=== PATIENT | female | born 1945 | race Caucasian/White ===

== ENCOUNTER 2017-02-13 03:56 | Observation (INO) ==
[2017-02-13] MEDS ORDERED: Ondansetron 4 MG/2 ML VIAL IVP ONE (04:17)
--- NOTE | 2017-02-13 04:24 | Emergency Department Note ---
Disposition Clinical Impression: Left facial numbness Disposition: Admitted As Inpatient Condition: Fair Time of Disposition: 05:43 General Adult HPI - General Chief complaint: ED Neuro Symptoms/Deficit Stated complaint: facial numbness Time Seen by Provider: 02/13/17 04:20 Source: patient, family Limitations: no limitations Nursing Notes Reviewed: Yes Vital Signs Reviewed: Yes - History of Present Illness HPI Narrative: 71-year-old female history of diabetes insulin-dependent, hypertension, previous Rolle's palsy, presents with acute/gradual onset of symptoms. Patient has been feeling not well for about a week, she complains of lower extremity abdominal swelling. This evening when she was walking around, she started noticing that she is having facial numbness some jaw aching and some tendon radiation down her arm. She denies any chest pain, she feels somewhat dizzy and has a mild headache that she describes as 4 out of 10 aching. patient denies recent fever or chills, denies hematemesis melena or hematochezia Pt Subjective Complaint: Facial numbness Onset (ago): hour(s) (3) Location: face Radiation: neck Pain Scale: 3 Quality: aching Consistency: constant Improves with: nothing Worsens with: movement Associated symptoms: Reports: headaches. Denies: confusion, chest pain, cough, diaphoresis, loss of appetite, malaise, nausea/vomiting, rash, shortness of breath, syncope - Related Data Home Medications Medication Instructions Recorded Confirmed Insulin Glargine [Lantus] 0 - 20 unit SQ DAILY PRN 07/27/15 10/17/16 Potassium Chloride [K-Tab ER] 10 meq PO DAILY 07/27/15 10/17/16 Vitamin E 1,000 units PO DAILY 07/27/15 10/17/16 amLODIPine [Norvasc] 5 mg PO DAILY 07/27/15 10/17/16 glipiZIDE [Glipizide] 10 mg PO BID 07/27/15 10/17/16 ALPRAZolam [Xanax 0.5 MG Tablet] 0.5 mg PO DAILY PRN 10/17/16 10/17/16 Fish Oil/Dha/Epa [Fish Oil 1,200 1,200 mg PO DAILY 10/17/16 10/17/16 mg Fish Oil] Omeprazole Magnesium [Prilosec Otc] 20 mg PO DAILY 10/17/16 10/17/16 Pioglitazone [Actos] 45 mg PO DAILY 10/17/16 10/17/16 Pramipexole [Mirapex] 1 mg PO HS 10/17/16 10/17/16 Triamterene/Hydrochlorothiazid 1 cap PO DAILY 10/17/16 10/17/16 [Dyazide 37.5-25 Capsule] Previous Rx's Medication Instructions Recorded HYDROcodone/Acet 5/325 mg [[place] 1 tab PO Q6H PRN #10 tab 06/09/16 5-325 mg] Azithromycin [Zithromax] 500 mg PO ONCE #5 tablet 10/18/16 Docusate [Colace] 100 mg PO BID 10/18/16 Ibuprofen [Motrin] 600 mg PO Q6HR PRN tab 10/18/16 cephALEXin [Keflex] 500 mg PO TID #21 capsule 10/18/16 Rivaroxaban [Xarelto] 15 mg PO BID #42 tablet 10/27/16 Allergies Allergy/AdvReac Type Severity Reaction Status Date / Time amitriptyline Allergy Diarrhea Verified 10/27/16 11:40 Amoxicillin [From Amoxil] Allergy Rash Verified 10/27/16 11:40 cephalexin Allergy Confusion Verified 10/27/16 11:40 gabapentin Allergy Hallucinati Verified 10/27/16 11:40 ng Influenza Virus Vaccines Allergy Vomiting Verified 10/27/16 11:40 liraglutide [From Victoza] Allergy Nausea Verified 10/27/16 11:40 metformin Allergy Diarrhea Verified 10/27/16 11:40 Penicillins Allergy Confusion Verified 10/27/16 11:40 pregabalin [From Lyrica] Allergy Swelling Verified 10/27/16 11:40 of Lip/Tongue/Throat sitagliptin Allergy Muscle Pain Verified 10/27/16 11:40 All systems ED: reviewed and negative except as stated. Review of Systems: As Per HPI Constitutional: Denies: fever, chills Eyes: Denies: eye pain ENT ED: Denies: ear pain, throat pain Cardiovascular: Denies: chest pain, palpitations Respiratory: Denies: cough, dyspnea Gastrointestinal: Denies: abdominal pain, nausea Genitourinary: Denies: urgency Integumentary: Denies: rash, abrasion Neurological: Reports: as per HPI, headache, numbness Endocrine: Reports: fatigue Past Medical History - Past Medical History Attestation: Yes The following information was validated with the patient. Source: patient Medical history: Reports: diabetes, GERD, hypertension Psychiatric history: Reports: anxiety - Social History Smoking Status: Never smoker Smokeless Tobacco Status: No Alcohol use: Reports: none Drug use: Reports: none Physical Exam - General Limitations: no limitations General appearance: alert, in no apparent distress - Head Head exam: atraumatic - Eye Eye exam: Present: normal appearance, PERRL - ENT ENT exam: normal exam, normal oropharynx - Neck Neck exam: Present: normal inspection, full ROM - Chest Chest inspection: Present: normal inspection. Absent: symmetric chest wall rise - Respiratory Respiratory exam: Present: normal lung sounds bilaterally. Absent: respiratory distress - Cardiovascular Cardiovascular exam: Present: normal rhythm, tachycardia, normal heart sounds - Expanded Cardiovascular Exam Peripheral pulses: 2+: radial (R), radial (L), posterior tibialis (R), posterior tibialis (L) - Abdominal Exam Abdominal exam: Present: soft. Absent: Non-Tender, tenderness - Extremities Exam Extremities exam: Present: normal inspection, full ROM - Expanded Lower Extremity Exam Ankle exam: Present: swelling (+2 pitting edema) - Expanded Neurological Exam Patient oriented to: Present: person, place, time Cranial nerves: EOM function (II, III, IV, ): Normal, facial sensation (V): Abnormal Left, facial palsy (VII): Normal, gag reflex (IX): Normal, spinal accessory function (XI): Normal, tongue deviation (XII): Normal Motor strength - LUE: 5/5 Motor strength - RUE: 5/5 Motor strength - LLE: 5/5 Motor strength - RLE: 5/5 Coma Scale Eye Opening: Spontaneous Coma Scale Motor Response: Obeys Commands Coma Scale Verbal Response: Oriented Coma Scale Total: 15 - Psychiatric Psychiatric exam: Present: normal affect - Skin Skin exam: Present: warm Course Course Narrative: 71-year-old female has multiple complaints on exam she has some mild nasal labial asymmetry, she has forehead sparing symmetric forehead creases, when she smiles there may be slight asymmetry but it is hard to tell, her NIH is 1, she has no subjective difference in sensation but she says that she has numbness and aching on her left face on her left cheek. She also has aching in her jaw, and a headache, these symptoms are nonspecific and minor if CVA, we will get a stat CT head also getting chest x-ray EKG basic lab work - Reevaluation(s) Reevaluation #1: Patient has stable symptoms, given the low NIH, possible TIA left facial numbness multiple comorbidities, her d-dimer was only 500s, given that she has age-adjusted cutoff of 720 no indication for advanced imaging at this time, the patient will be given an aspirin given a cardiac diet at spoke with the hospitalist Dr. Costa admitted for further workup including MRI possible echo given that she has lower externally swelling patient stable condition at the time of ED disposition Time: 06:28 Vital Signs Temperature 97.9 F 02/13/17 03:58 Pulse Rate 99 02/13/17 03:58 Respiratory Rate 18 02/13/17 03:58 Blood Pressure 207/80 02/13/17 03:58 O2 Sat by Pulse Oximetry 98 02/13/17 03:58 Temperature 97.9 F 02/13/17 03:58 Pulse Rate 84 02/13/17 05:09 Respiratory Rate 18 02/13/17 05:09 Blood Pressure 140/68 02/13/17 05:09 O2 Sat by Pulse Oximetry 96 02/13/17 05:09 Oxygen Delivery Oxygen Delivery Room Air Medical Decision Making - Medical Records Medical records reviewed: Yes I reviewed the patient's medical records. - Lab Data Lab results reviewed: Yes I reviewed the patient's lab results. Result diagrams: 02/13/17 04:22 02/13/17 04:22 Lab Results 02/13/17 02/13/17 02/13/17 Range/Units 04:22 04:22 04:22 WBC 6.1 (4.3-11.1) K/mcL RBC 4.63 (3.82-4.97) M/mcL Hgb 14.4 (11.5-15.4) g/dL Hct 43.6 (35.3-44.9) % MCV 94.2 (83.0-100.0) fL MCH 31.1 (28.0-33.3) pg MCHC 33.0 (31.6-35.5) g/dL RDW 12.8 (11.5-14.5) % Plt Count 140 (140-400) K/mcL MPV 9.8 (9.4-12.4) fL Immature Gran % 0.5 (0-4) % Seg Neutrophils % 54.8 % Lymphocytes % 33.1 % Monocytes % 9.6 % Eosinophils % 1.5 % Basophils % 0.5 % Neutrophils # 3.4 (1.6-8.9) K/mcL Lymphocytes # 2.0 (0.6-4.6) K/mcL Monocytes # 0.6 (0.0-1.3) K/mcL Eosinophils # 0.1 (0.0-0.6) K/mcL Basophils # 0.0 (0.0-0.2) K/mcL PT 10.6 (9.4-12.1) Seconds INR 1.0 APTT 26.5 (26.0-36.0) Seconds D-Dimer 534 H (0-500) ng/mLFEU Sodium 139 (136-145) mEq/L Potassium 3.7 (3.5-5.1) mEq/L Chloride 102 (98-107) mEq/L Carbon Dioxide 28 (23-29) mEq/L BUN 19 (8-23) mg/dL Creatinine 0.73 (0.60-1.20) mg/dL Est GFR ( Amer) > 60 (> 60) Est GFR (Non-Af Amer) > 60 (> 60) BUN/Creatinine Ratio 26 (6-26) Glucose 270 H (70-105) mg/dL Calculated Osmolality 300 (280-300) Calcium 9.4 (8.6-10.3) mg/dL Troponin I (< 0.04) ng/mL Urine Color (Yellow) Urine Clarity (Clear) Urine pH (5.0-8.0) pH Units Ur Specific [place] (1.010-1.025) Urine Protein (Neg-Trace) mg/dL Urine Glucose (UA) (Normal) mg/dL Urine Ketones (Negative) mg/dL Urine Blood (Negative) Urine Nitrite (Negative) Urine Bilirubin (Negative) Urine Urobilinogen (Normal) mg/dL Ur Leukocyte Esterase (Negative) Ur Culture Indicated? (NO) 02/13/17 02/13/17 Range/Units 04:22 04:39 WBC (4.3-11.1) K/mcL RBC (3.82-4.97) M/mcL Hgb (11.5-15.4) g/dL Hct (35.3-44.9) % MCV (83.0-100.0) fL MCH (28.0-33.3) pg MCHC (31.6-35.5) g/dL RDW (11.5-14.5) % Plt Count (140-400) K/mcL MPV (9.4-12.4) fL Immature Gran % (0-4) % Seg Neutrophils % % Lymphocytes % % Monocytes % % Eosinophils % % Basophils % % Neutrophils # (1.6-8.9) K/mcL Lymphocytes # (0.6-4.6) K/mcL Monocytes # (0.0-1.3) K/mcL Eosinophils # (0.0-0.6) K/mcL Basophils # (0.0-0.2) K/mcL PT (9.4-12.1) Seconds INR APTT (26.0-36.0) Seconds D-Dimer (0-500) ng/mLFEU Sodium (136-145) mEq/L Potassium (3.5-5.1) mEq/L Chloride (98-107) mEq/L Carbon Dioxide (23-29) mEq/L BUN (8-23) mg/dL Creatinine (0.60-1.20) mg/dL Est GFR ( Amer) (> 60) Est GFR (Non-Af Amer) (> 60) BUN/Creatinine Ratio (6-26) Glucose (70-105) mg/dL Calculated Osmolality (280-300) Calcium (8.6-10.3) mg/dL Troponin I < 0.03 (< 0.04) ng/mL Urine Color Yellow (Yellow) Urine Clarity Clear (Clear) Urine pH 6.0 (5.0-8.0) pH Units Ur Specific [place] 1.030 H (1.010-1.025) Urine Protein Negative (Neg-Trace) mg/dL Urine Glucose (UA) >=1000 H (Normal) mg/dL Urine Ketones Negative (Negative) mg/dL Urine Blood Negative (Negative) Urine Nitrite Negative (Negative) Urine Bilirubin Negative (Negative) Urine Urobilinogen Normal (Normal) mg/dL Ur Leukocyte Esterase Negative (Negative) Ur Culture Indicated? NO (NO) - Radiology Data Radiology results reviewed: Yes I reviewed the patient's radiology results. Chest X-Ray 01/02/18 04:17 IMPRESSION: No significant findings in the chest. D/ / Jesus Baker MD / Jesus Baker MD Interpreting Provider: Jesus Baker MD Head CT 02/13/17 04:17 IMPRESSION: No acute intracranial abnormality. D/ / Jesus Baker MD / Jesus Baker MD Interpreting Provider: Jesus Baker MD - EKG Data EKG #1 EKG attestation: Yes I reviewed and interpreted this EKG. EKG shows normal: sinus rhythm (92 bpm AK 203 QRS 84 QTC 394 no acute ischemic changes, poor R wave progression seen on previous EKG in September 2016) Rate: normal Rhythm: NSR Interpretation: no acute changes - Core Measures AMI Core Measures Followed: No Measure Exclusions: not indicated Attestation Statement - Attestation Attestation: I, Adin Flynn MD, personally evaluated this patient and discussed their management with the resident physician. I reviewed the resident's note and agree with the documented findings, medical decision making, and plan of care. 71-year-old female presents to the emergency department with a complaint of numbness in the left side of her face which started about 3 hours prior to arrival. Onset was gradual. She states that the symptoms have pretty much stayed the same and do not seem to be getting worse or better. She has a prior history of Rolle's palsy several years ago. She denies history of stroke. She denies a difficulty with speech or swallowing or balance. No weakness in the extremities. No confusion. She does complain of some headache. She has a history of a DVT which was treated with Eliquis which she discontinued a few weeks ago and is now taking low-dose aspirin daily. Patient also complains that over the past week she has had just generalized not feeling well. She states that she feels bloated and swollen and has gained more than 10 pounds over the last week. She denies any increased shortness of breath. She does state that the numbness is just in the left cheek and jaw area and that also teeth hurt. Also earlier the numbness did seem to go down into the left arm and into the left upper chest and she had some discomfort in the left upper chest. On examination patient is a well-developed obese elderly female in no acute distress. She is alert and oriented 3. There is no cyanosis or diaphoresis. Patient appears to have may be some very minimal right facial droop however her numbness is on the left side. Actually the right side may be normal in the left side may be slightly swollen. No focal motor or sensory deficits on examination. Normal elevation of the eyelids bilaterally and normal squinting of the eyes bilaterally. Neck is supple and nontender with full range of motion. No meningismus. Breath sounds are clear and equal bilaterally. Heart regular rate and rhythm. Abdomen soft and nontender with normal bowel sounds. Labs reviewed. Chest x-ray negative. Head CT negative. No acute ischemic changes on EKG. The hospitalist, Dr. Costa, was consulted and accepted admission of the patient. NIH Stroke Scale - Level of Consciousness LOC: Alert - LOC Questions LOC Questions: Answers both correctly - LOC Commands LOC Commands: Performs both correctly - Best Gaze Best Gaze: Normal - Visual Visual: No visual loss - Facial Palsy Facial Palsy: Minor asymmetry on smiling, flattened nasolabial fold - Motor Arms Motor Arm-Left: No drift for 10 seconds Motor Arm-Right: No drift for 10 seconds - Motor Legs Motor Leg-Left: No drift for 5 seconds Motor Leg-Right: No drift for 5 seconds - Limb Ataxia Limb Ataxia: Absent of affected limb too weak to perform exam - Sensory Sensory: Normal - Best Language Best Language: No aphasia - Dysarthria Dysarthria: Normal - Extinction and Inattention Extinction and Inattention: Normal - NIHSS Total Score NIHSS Total Score: 1
[2017-02-13 04:31] LABS: Basophils % 0.5 %; Eosinophils # 0.1 K/mcL (0.0-0.6); Eosinophils % 1.5 %; Hematocrit 43.6 % (35.3-44.9); Hemoglobin 14.4 g/dL (11.5-15.4); Immature Granulocytes % 0.5 % (0-4); Lymphocytes % 33.1 %; Mean Corpuscular Hemoglobin 31.1 pg (28.0-33.3); Mean Corpuscular Volume 94.2 fL (83.0-100.0); Mean Platelet Volume 9.8 fL (9.4-12.4); Monocytes # 0.6 K/mcL (0.0-1.3); Monocytes % 9.6 %; Neutrophils # 3.4 K/mcL (1.6-8.9); Platelet Count 140 K/mcL (140-400); Red Blood Count 4.63 M/mcL (3.82-4.97); Red Cell Distribution Width 12.8 % (11.5-14.5); Segmented Neutrophils % 54.8 %
[2017-02-13 04:50] LABS: BUN/Creatinine Ratio 26 (6-26); Blood Urea Nitrogen 19 mg/dL (8-23); Calcium 9.4 mg/dL (8.6-10.3); Carbon Dioxide 28 mEq/L (23-29); Chloride 102 mEq/L (98-107); Glucose 270 mg/dL (70-105); Osmolality,Calculated 300 (280-300); Potassium 3.7 mEq/L (3.5-5.1); Sodium 139 mEq/L (136-145); eGFR For African Americans > 60 (> 60); eGFR For Non-African Americans > 60 (> 60)
[2017-02-13 04:52] LABS: Prothrombin Time 10.6 Seconds (9.4-12.1)
[2017-02-13 04:55] LABS: Activated Partial Thrombo Time 26.5 Seconds (26.0-36.0)
[2017-02-13 05:06] LABS: Bilirubin,Urine Negative (Negative); Blood,Urine Negative (Negative); Clarity,Urine Clear (Clear); Color,Urine Yellow (Yellow); Glucose,Urine (UA) >=1000 mg/dL (Normal); Ketones,Urine Negative (Negative); Leukocyte Esterase,Urine Negative (Negative); Nitrite,Urine Negative (Negative); Protein,Urine Negative (Neg-Trace); Urobilinogen,Urine Normal (Normal)
[2017-02-13] MEDS ORDERED: Aspirin 81 MG TAB.CHEW PO ONE (06:26)
[2017-02-13] MEDS ORDERED: Aspirin 81 MG TAB.CHEW ONE (06:28)
[2017-02-13] MEDS ORDERED: Naloxone 0.4 MG/ML INJ IVP PRN ×2 (06:32→09:16)
[2017-02-13] MEDS ORDERED: Acetaminophen 325 MG TABLET PO PRN (06:32)
--- NOTE | 2017-02-13 08:56 | Internal Med History&Physical ---
Date of Encounter: 02/14/17 Time of Encounter: 08:55 Assessment and Plan (1) Left facial numbness Current visit: Yes Status: Acute 71/female Background history of diabetes, peripheral vascular disease, previous left- sided Rolle's palsy. Admitted with left-sided facial numbness. Ongoing intermittent, facial numbness for more than a few hours last night. Workup in the emergency room negative for any acute CVA. I did a bedside swallow evaluation and patient did not have any problems in terms of swallowing. Assessment: TIA to rule out CVA. Possibility of her trigeminal neuralgia in view of her long-standing diabetes. Plan: Admitted as an observation. Diabetic diet. Aspirin/Lipitor. MRI brain. Ultrasound carotid. 2-D echo. Physical therapy/occupational therapy evaluation. DVT prophylaxis: Heparin Echocardiogram/ultrasound carotid/MRI brain negative for any obvious pathology then patient can go home tomorrow and follow with the PCP as outpatient. If any of the above investigation is abnormal then please inform appropriate specialty for further workup. Patient may follow-up with neurology as outpatient if all above workup is within normal limits ( [employer] of ?Trieminal Neuralgia) Of note: I have examined this patient in the emergency room #30. Patient's was at the bedside. I have discussed the plan and working diagnosis with the patient and her . All the questions answered at the time of admission. (2) Diabetes Current visit: No Status: Chronic Patient is presently taking insulin for her type 2 diabetes mellitus. We will resume the home dose. We will follow the subcutaneous insulin orders set. We will follow the recommendations from the subcutaneous insulin order set. Qualifiers: Diabetes mellitus type: type 2 Diabetes mellitus complication status: with unspecified complications Diabetes mellitus chcf insulin use: unspecified clamp operator insulin use status Qualified Code(s): E11.8 - Type 2 diabetes mellitus with unspecified complications (3) Obesity Current visit: Yes Status: Acute Patient will get benefit from outpatient evaluation from bariatric surgery. Qualifiers: Obesity type: unspecified obesity type Obesity classification: adult class 2 (BMI 35 - 39.9) Serious obesity comorbidity presence: without serious comorbidity Body mass index: BMI 37.0-37.9 Qualified Code(s): E66.9 - Obesity, unspecified; Z68.37 - Body mass index (BMI) 37.0-37.9, adult; Z68.37 - Body mass index (BMI) 37.0-37.9, adult (4) DVT prophylaxis Current visit: Yes Status: Acute Heparin Medical decision making: This patient has a moderate to severe risk of worsening in spite of being on appropriate treatment/medication due to the underlying chronic comorbid conditions. Internal Medicine - H&P: HPI Chief complaint: numbness over left face. Admitted From: Emergency Dept Plans for Post Hospital Care: Home History of present illness: PCP: Nurse practitioner Lyn Diamond Brief past medical history: Diabetes2 (insulin-dependent), hypertension, peripheral neuropathy, peripheral vascular disease. Previous history of Rolle's palsy History of present medical illness: Patient was walking around in her house last night around 12:30 AM.(She usually does this because she has a severe peripheral neuropathy and she is not able to sleep in the night.). At this time patient realized that certainly she has a numbness over left side of her face which was ongoing and intermittent lasting for 15-20 minutes. The ongoing numbness was bothering patient for initial 2-3 hours. She tried to apply some lotion/cream to affected area but it was on going numbness which brought her to the hospital for further evaluation. Patient denies any weakness, tingling, numbness other than facial area. Patient denies any diplopia, dysarthria, dysphagia or incontinence. Workup in the emergency room: Patient was evaluated in the emergency room. CT scan of the head was negative for any acute infarct. Chest x-ray was noncontributory to this illness. Basic labs were within a acceptable range including d-dimer. Reason for admission: Possible TIA to rule out CVA. Family history: Noncontributory Past Med Surg Social Fam HX - Past Medical History Medical history: diabetes, GERD, hypertension Psychiatric history: no psych history - Past Surgical History Surgical History: cholecystectomy, hysterectomy - Social History Smoking Status: Never smoker Smokeless Tobacco Status: No Alcohol use: none Drug use: none Internal Medicine - H&P: Meds Insulin Glargine [Lantus] 20 unit SQ QAM 07/27/15 [History] Potassium Chloride [K-Tab ER] 10 meq PO BID 07/27/15 [History] Vitamin E 1,000 units PO DAILY 07/27/15 [History] amLODIPine [Norvasc] 5 mg PO DAILY 07/27/15 [History] glipiZIDE [Glipizide] 10 mg PO BID 07/27/15 [History] ALPRAZolam [Xanax 0.5 MG Tablet] 0.5 mg PO DAILY PRN 10/17/16 [History] Fish Oil/Dha/Epa [Fish Oil 1,200 mg Fish Oil] 1,200 mg PO DAILY 10/17/16 [ History] Pioglitazone [Actos] 45 mg PO DAILY 10/17/16 [History] Pramipexole [Mirapex] 1 mg PO HS 10/17/16 [History] Triamterene/Hydrochlorothiazid [Dyazide 37.5-25 Capsule] 1 cap PO DAILY [History] Docusate [Colace] 100 mg PO BID 10/18/16 [Rx] Ibuprofen [Motrin] 600 mg PO Q6HR PRN tab 10/18/16 [Rx] HYDROcodone/Acet 5/325 mg [[place] 5-325 mg] 1 tab PO BID PRN 02/13/17 [History] 3 Allergy/AdvReac Type Severity Reaction Status Date / Time amitriptyline Allergy Diarrhea Verified 10/27/16 11:40 Amoxicillin [From Amoxil] Allergy Rash Verified 10/27/16 11:40 cephalexin Allergy Confusion Verified 10/27/16 11:40 gabapentin Allergy Hallucinati Verified 10/27/16 11:40 ng Influenza Virus Vaccines Allergy Vomiting Verified 10/27/16 11:40 liraglutide [From Victoza] Allergy Nausea Verified 10/27/16 11:40 metformin Allergy Diarrhea Verified 10/27/16 11:40 Penicillins Allergy Confusion Verified 10/27/16 11:40 pregabalin [From Lyrica] Allergy Swelling Verified 10/27/16 11:40 of Lip/Tongue/Throat sitagliptin Allergy Muscle Pain Verified 10/27/16 11:40 All Systems PM: A 10-system review of systems was performed and is negative for pertinent findings except as documented above in the HPI. - Constitutional Constitutional: no chills, no fever(s), no night sweats - EENT Eyes: no change in vision, no discharge, no pain, no photophobia Additional comments: Left-sided facial numbness Ears: no ear discharge, no ear pain, no tinnitus Nose, mouth and throat: no dysphagia, no nasal discharge, no neck pain, no sore throat - Cardiovascular Cardiovascular ROS IM: no chest pain, no diaphoresis, no dyspnea, no lightheadedness, no palpitations, no syncope - Respiratory Respiratory: no cough, no dyspnea, no wheezing, no excessive phlegm production - Gastrointestinal Gastrointestinal: no abdominal pain, no diarrhea, no hematemesis, no hematochezia, no melena, no nausea, no vomiting - Genitourinary Genitourinary: no change in urinary stream, no dysuria, no flank pain, no hematuria - Musculoskeletal Musculoskeletal ROS IM: no numbness, no tingling - Integumentary Integumentary IM: no rash, no unusual bruising - Neurological Neurological ROS: no confusion, no convulsions, no focal weakness, no numbness, no tingling, no tremor(s) - Hematologic/Lymphatic Hematologic/Lymphatic: no easy bruising - Constitutional Vitals: Temp Pulse Resp BP Pulse Ox 98.0 F 80 16 152/83 99 02/13/17 06:31 02/13/17 06:31 02/13/17 06:31 02/13/17 06:31 02/13/17 06:31 General appearance: Present: A&O X 3, pleasant, no acute distress, answers questions appropriately - Head Head exam: Present: atraumatic, normocephalic - Eye Eye exam: Present: PERRL, conjuntiva pink, sclera anicteric Pupils: Present: PERRL - Neck Neck exam general surgery: Present: supple, trachea midline. Absent: lymphadenopathy - Respiratory Respiratory exam: Present: CTAB. Absent: accessory muscle use, rales, rhonchi, wheezes - Cardiovascular Cardiovascular exam: Present: RRR, +S1, +S2. Absent: diastolic murmur, gallop, rubs, systolic murmur - GI/Abdominal GI/Abdominal exam: Present: normal bowel sounds, soft, no peritoneal signs. Absent: distended, tenderness - Extremities Exam Extremities exam: Present: warm, radial pulses palpable and symmetrical. Absent : calf tenderness, cyanotic, pedal edema - Neurological Exam Neurological exam: Present: CN II-XII intact, oriented X3, no focal deficits. Absent: pronater drift, facial droop, speech deficit - Skin Skin exam: Present: dry, intact Internal Med - H&P Results - Labs CBC & Chem 7: 02/14/17 04:52 02/14/17 04:52 Labs: Results discussed with the emergency room physician - Impressions ITS Impressions Brain MRI 02/13/17 06:33 IMPRESSION: 1. No acute infarct or acute intracranial process identified. 2. Single nonspecific focus of white matter signal abnormality within the right frontal lobe, likely the sequelae of mild chronic small vessel ischemia. D/ / Rhys Grijalva MD / Rhys Grijalva MD Interpreting Provider: Rhys Grijalva MD
[2017-02-13] MEDS ORDERED: *HR* HYDROcodone/Acet 5/325 mg TABLET PO PRN (09:19)
[2017-02-13] MEDS ORDERED: ALPRAZolam 0.5 MG TABLET PO PRN (09:19)
[2017-02-13] MEDS ORDERED: D5% in Water 1,000 ML IVC PRN (09:20)
[2017-02-13] MEDS ORDERED: Dextrose Gel 15 GM/37.5 ML TUBE PO PRN ×2 (09:20)
[2017-02-13] MEDS ORDERED: *HR* Dextrose 50 % in Water (Syg) 50 ML SYRINGE IVP PRN (09:20)
[2017-02-13 10:32] LABS: Hemoglobin A1C 8.3 %
[2017-02-13] MEDS: Aspirin Enteric Coated 81 MG Tablet PO SCH (10:55)
[2017-02-13] MEDS: Insulin LISPRO 300 UNITS/3 ML VIAL SQ SCH ×2 (12:11→17:32)
[2017-02-13] MEDS: *HR* Heparin 5,000 UNIT/ML VIAL SQ SCH ×2 (14:44→20:19)
[2017-02-13] MEDS ORDERED: Ondansetron ODT 4 MG TAB.RAPDIS SL PRN (15:23)
[2017-02-14] MEDS: *HR* Heparin 5,000 UNIT/ML VIAL SQ SCH (05:24)
[2017-02-14 05:54] LABS: Basophils % 0.2 %; Eosinophils # 0.1 K/mcL (0.0-0.6); Eosinophils % 1.3 %; Hematocrit 42.1 % (35.3-44.9); Immature Granulocytes % 0.4 % (0-4); Immature Platelets 3.3 % (1.1-6.1); Lymphocytes # 1.9 K/mcL (0.6-4.6); Mean Corpuscular HGB Conc 33.3 g/dL (31.6-35.5); Mean Corpuscular Hemoglobin 31.2 pg (28.0-33.3); Mean Corpuscular Volume 93.8 fL (83.0-100.0); Monocytes # 0.5 K/mcL (0.0-1.3); Monocytes % 8.6 %; Neutrophils # 3.1 K/mcL (1.6-8.9); Platelet Count 144 K/mcL (140-400); Red Blood Count 4.49 M/mcL (3.82-4.97); Segmented Neutrophils % 55.5 %
[2017-02-14 06:06] LABS: BUN/Creatinine Ratio 27 (6-26); Blood Urea Nitrogen 16 mg/dL (8-23); Calcium 9.5 mg/dL (8.6-10.3); Carbon Dioxide 31 mEq/L (23-29); Chloride 104 mEq/L (98-107); Chol/HDL Ratio 3.5 (0-4.9); Cholesterol 237 mg/dL (< 200); Glucose 145 mg/dL (70-105); HDL Cholesterol 68 mg/dL (40-59); LDL Cholesterol,Calculated 102 mg/dL (0-99); Osmolality,Calculated 296 (280-300); Phosphorous 3.9 mg/dL (2.7-4.5); Potassium 3.6 mEq/L (3.5-5.1); Sodium 141 mEq/L (136-145); Triglycerides 335 mg/dL (< 150); eGFR For African Americans > 60 (> 60); eGFR For Non-African Americans > 60 (> 60)
[2017-02-14 06:49] LABS: Prothrombin Time 11.2 Seconds (9.4-12.1)
[2017-02-14 06:51] LABS: Activated Partial Thrombo Time 28.2 Seconds (26.0-36.0)
[2017-02-14] MEDS: Insulin LISPRO 300 UNITS/3 ML VIAL SQ SCH (07:58)
[2017-02-14] MEDS: Aspirin Enteric Coated 81 MG Tablet PO SCH (07:59)
[2017-02-14] MEDS ORDERED: DHA PO SCH (09:00)
[2017-02-14] MEDS ORDERED: EPA PO SCH (09:00)
[2017-02-14] MEDS ORDERED: Insulin DETEMIR 100 UNIT/ML X5UNITS SQ SCH (09:00)
[2017-02-14] MEDS ORDERED: FISH OIL PO SCH (09:00)
[2017-02-14] MEDS ORDERED: amLODIPine 5 MG TABLET PO SCH (09:00)
--- NOTE | 2017-02-14 11:57 | Discharge Summary ---
Date of Encounter: 02/14/17 Time of Encounter: 11:54 - Discharge Diagnosis (1) Left facial numbness Priority: Primary Status: Acute (2) Diabetes Priority: Secondary Status: Chronic Qualifiers: Diabetes mellitus type: type 2 Diabetes mellitus complication status: with unspecified complications Diabetes mellitus [facility] insulin use: unspecified ad terminal makeup operator insulin use status Qualified Code(s): E11.8 - Type 2 diabetes mellitus with unspecified complications (3) Obesity Priority: Secondary Status: Acute Qualifiers: Obesity type: unspecified obesity type Obesity classification: adult class 2 (BMI 35 - 39.9) Serious obesity comorbidity presence: without serious comorbidity Body mass index: BMI 37.0-37.9 Qualified Code(s): E66.9 - Obesity, unspecified; Z68.37 - Body mass index (BMI) 37.0-37.9, adult; Z68.37 - Body mass index (BMI) 37.0-37.9, adult (4) DVT prophylaxis Priority: Secondary Status: Acute - Discharge Medications Prescriptions: Aspirin Enteric Coated [Aspirin EC] 81 mg PO DAILY #30 tablet. Atorvastatin [Lipitor] 20 mg PO HS #60 tablet Home Medications: Insulin Glargine [Lantus] 20 unit SQ QAM 07/27/15 [History] Potassium Chloride [K-Tab ER] 10 meq PO BID 07/27/15 [History] Vitamin E 1,000 units PO DAILY 07/27/15 [History] amLODIPine [Norvasc] 5 mg PO DAILY 07/27/15 [History] glipiZIDE [Glipizide] 10 mg PO BID 07/27/15 [History] ALPRAZolam [Xanax 0.5 MG Tablet] 0.5 mg PO DAILY PRN 10/17/16 [History] Fish Oil/Dha/Epa [Fish Oil 1,200 mg Fish Oil] 1,200 mg PO DAILY 10/17/16 [ History] Pioglitazone [Actos] 45 mg PO DAILY 10/17/16 [History] Pramipexole [Mirapex] 1 mg PO HS 10/17/16 [History] Triamterene/Hydrochlorothiazid [Dyazide 37.5-25 Capsule] 1 cap PO DAILY [History] Docusate [Colace] 100 mg PO BID 10/18/16 [Rx] Ibuprofen [Motrin] 600 mg PO Q6HR PRN tab 10/18/16 [Rx] HYDROcodone/Acet 5/325 mg [[place] 5-325 mg] 1 tab PO BID PRN 02/13/17 [History] Aspirin Enteric Coated [Aspirin EC] 81 mg PO DAILY #30 tablet. 02/14/17 [Rx] Atorvastatin [Lipitor] 20 mg PO HS #60 tablet 02/14/17 [Rx] Allergies/Adverse Reactions: 3 Allergy/AdvReac Type Severity Reaction Status Date / Time amitriptyline Allergy Diarrhea Verified 10/27/16 11:40 Amoxicillin [From Amoxil] Allergy Rash Verified 10/27/16 11:40 cephalexin Allergy Confusion Verified 10/27/16 11:40 gabapentin Allergy Hallucinati Verified 10/27/16 11:40 ng Influenza Virus Vaccines Allergy Vomiting Verified 10/27/16 11:40 liraglutide [From Victoza] Allergy Nausea Verified 10/27/16 11:40 metformin Allergy Diarrhea Verified 10/27/16 11:40 Penicillins Allergy Confusion Verified 10/27/16 11:40 pregabalin [From Lyrica] Allergy Swelling Verified 10/27/16 11:40 of Lip/Tongue/Throat sitagliptin Allergy Muscle Pain Verified 10/27/16 11:40 Procedures/tests Complete & Pending: Procedures Performed prior 72 hours Category Date Time Status MR head/brain wo con [MR] Routine MRI 02/13/17 06:33 Completed ECG 12 lead ECG [ECG] Routine Y 02/13/17 04:20 Completed EV carotid duplex imaging BI Routine Y 02/13/17 09:18 Completed EV echocardiogram Routine Y 02/13/17 09:18 Completed Date of admission: 02/13/17 06:14 Primary care physician: Lyn Diamond CNP Consults: 02/13/17 09:17 Consult to Occupational Therapy [CONS] Routine Comment: Evaluate, develop and implement POC Reason for Consult: TIA to rule out CVA Consult to Physical Therapy [CONS] Routine Comment: Evaluate, develop and implement POC Reason for Consult: TIA to rule out CVA Discharging clinician: Darion Hickey - Patient Status Disposition: Home, Self-Care Condition: Fair Functional capacity at discharge: independent ambulation Overall status at discharge: patient is progressing back to baseline - Discharge Instructions Follow Up With: Lyn Diamond CNP [Primary Care Provider] - 02/22/17 3:00 pm Larry Vicente, DO [Partnered Physician] - - Diet and Activity Activity: increase activity as tolerated Diet: diabetic diet Interval History: PCP: Nurse practitioner Lyn Diamond Brief past medical history: Diabetes2 (insulin-dependent), hypertension, peripheral neuropathy, peripheral vascular disease. Previous history of Rolle's palsy History of present medical illness: Patient was walking around in her house last night around 12:30 AM.(She usually does this because she has a severe peripheral neuropathy and she is not able to sleep in the night.). At this time patient realized that certainly she has a numbness over left side of her face which was ongoing and intermittent lasting for 15-20 minutes. The ongoing numbness was bothering patient for initial 2-3 hours. She tried to apply some lotion/cream to affected area but it was on going numbness which brought her to the hospital for further evaluation. Patient denies any weakness, tingling, numbness other than facial area. Patient denies any diplopia, dysarthria, dysphagia or incontinence. Workup in the emergency room: Patient was evaluated in the emergency room. CT scan of the head was negative for any acute infarct. Chest x-ray was noncontributory to this illness. Basic labs were within a acceptable range including d-dimer. Reason for admission: Possible TIA to rule out CVA. Hospital course: Hospital course: Patient was hospitalized. She underwent MRI of the brain. Along with that she underwent echocardiogram and ultrasound carotid. The results are as follows. MRI brain: No acute CVA. Single nonspecific focus of white matter signal abnormality within the right frontal lobe, this was likely a sequelae of chronic small vessel ischemia. Echocardiogram: Ejection fraction 60-65%. Mild diastolic dysfunction. No evidence of PFO. Ultrasound carotid: No significant obstruction noted. Noted that patient's LDL is 112. Plan: We will start patient aspirin 81 mg everyday. We will start patient on Lipitor 20 mg every night. Respiratory medication to continue which were her home medication. Patient will follow-up with the neurology as outpatient for possible trigeminal neuralgia/diabetic neuropathy. Patient will follow with the primary care provider in one to 2 weeks. All above explained to the patient and her was at bedside. At the time of discharge patient does not have any questions, concerns,updates or recommendations. - Time Spent with Patient Total time spent providing and/or coordinating discharge services: - Constitutional Vitals: Temp Pulse Resp BP Pulse Ox 97.7 F 69 18 147/68 94 02/14/17 07:27 02/14/17 07:27 02/14/17 07:27 02/14/17 07:27 02/14/17 07:27 General appearance: Present: A&O X 3, pleasant, no acute distress, answers questions appropriately - Head Head exam: Present: atraumatic, normocephalic - Eye Eye exam: Present: PERRL, conjuntiva pink, sclera anicteric Pupils: Present: PERRL - Neck Neck exam general surgery: Present: supple, trachea midline. Absent: lymphadenopathy - Respiratory Respiratory exam: Present: CTAB. Absent: accessory muscle use, rales, rhonchi, wheezes - Cardiovascular Cardiovascular exam: Present: RRR, +S1, +S2. Absent: diastolic murmur, gallop, rubs, systolic murmur - GI/Abdominal GI/Abdominal exam: Present: normal bowel sounds, soft, no peritoneal signs. Absent: distended, tenderness - Extremities Exam Extremities exam: Present: warm, radial pulses palpable and symmetrical. Absent : calf tenderness, cyanotic, pedal edema - Neurological Exam Neurological exam: Present: CN II-XII intact, oriented X3, no focal deficits. Absent: pronater drift, facial droop, speech deficit - Skin Skin exam: Present: dry, intact
[2017-02-14 12:07] VITALS: BP 129/74
--- NOTE | 2017-02-14 16:51 | Electrocardiograph Report ---
[address] [place] [address] Test Date: 2017-02-13 Pat Name: Charmaine Lewis Department: 104 Room: 3B37 Gender: F Facility Rehab Director: : 1945 Requested By: Dionna Reyes Order Number: [id number] Reading MD: Terra Martinez Measurements Intervals [place] Rate: 92 P: -63 MO: 203 QRS: -21 QRSD: 84 T: 53 QT: 344 QTc: 394 Interpretive Statements PROBABLY SINUS RHYTHM LOW QRS VOLTAGE IN PRECORDIAL LEADS [QRS DEFLECTION < 1.0 mV IN CHEST LEADS] INFERIOR MYOCARDIAL INFARCTION [40+ ms Q WAVE AND/OR ST/T ABNORMALITY IN II/aVF], PROBABLY OLD BASELINE ARTIFACT Electronically Signed On 02-14-2017 16:49:31 EST by Terra Martinez
== END 2017-02-14 13:20 | disposition home or self-care (01) ==
LOC: EMEROO 03:56 → 3BNU 03:56
PROVIDERS: ADMIT Internal Medicine; ATTEND Registered Nurse

== ENCOUNTER 2017-06-14 15:26 | Observation (INO) ==
--- NOTE | 2017-06-14 15:58 | Emergency Department Note ---
Disposition Clinical Impression: Shortness of breath, Exertional chest pain Disposition: Admitted As Inpatient Condition: Fair Time of Disposition: 19:01 General Adult HPI - General Stated complaint: "sob,cp x 3 days" Time Seen by Provider: 06/14/17 15:30 Source: patient, family Limitations: no limitations Nursing Notes Reviewed: Yes Vital Signs Reviewed: Yes - History of Present Illness HPI Narrative: Mrs. Lewis, 72-year-old female, presents from home for evaluation of a 2-3 day history of progressive dyspnea with exertion. Associated with increased swelling of her bilateral lower extremities and hands so that she is now unable to wear her wedding rings. Associated with chest pain described as dull heaviness. No extremity weakness/tightness/tingling. She does have associated left-sided neck pain. She knows that she is been given a prescription of Lasix by her primary care provider which does help her swelling however, as soon as she runs out of the medication, or swelling comes right back. She denies any history of congestive heart failure. PMH: Hypertension, hyperlipidemia, diabetes on oral antihyperglycemic. No history of CAD, ACS, or stents. ROS: Positive: As above Negative: Cough, fever, chills, unusual back pain, diaphoresis, abdominal pain, nausea, vomiting, vertigo Pain Scale: 7 - Related Data Home Medications Medication Instructions Recorded Confirmed Insulin Glargine [Lantus] 30 unit SQ QAM 07/27/15 06/14/17 Potassium Chloride [K-Tab ER] 10 meq PO BID 07/27/15 06/14/17 Vitamin E 1,000 units PO DAILY 07/27/15 06/14/17 amLODIPine [Norvasc] 5 mg PO DAILY 07/27/15 06/14/17 glipiZIDE [Glipizide] 10 mg PO TID 07/27/15 06/14/17 ALPRAZolam [Xanax 0.5 MG Tablet] 0.5 mg PO DAILY PRN 10/17/16 06/14/17 Fish Oil/Dha/Epa [Fish Oil 1,200 1,200 mg PO DAILY 10/17/16 06/14/17 mg Fish Oil] Pramipexole [Mirapex] 1 mg PO 2000 10/17/16 06/14/17 Triamterene/Hydrochlorothiazid 1 cap PO DAILY 10/17/16 06/14/17 [Dyazide 37.5-25 Capsule] Multivit-Min/FA/Lycopen/Lutein [A 1 tab PO DAILY 06/14/17 06/14/17 Thru Z [facility] Multivit Tab] Omeprazole 20 mg PO DAILY 06/14/17 06/14/17 Previous Rx's Medication Instructions Recorded Ibuprofen [Motrin] 600 mg PO Q6HR PRN tab 10/18/16 Aspirin Enteric Coated [Aspirin EC] 81 mg PO DAILY #30 tablet. 02/14/17 Allergies Allergy/AdvReac Type Severity Reaction Status Date / Time amitriptyline Allergy Diarrhea Verified 10/27/16 11:40 Amoxicillin [From Amoxil] Allergy Rash Verified 10/27/16 11:40 cephalexin Allergy Confusion Verified 10/27/16 11:40 gabapentin Allergy Hallucinati Verified 10/27/16 11:40 ng Influenza Virus Vaccines Allergy Vomiting Verified 10/27/16 11:40 liraglutide [From Victoza] Allergy Nausea Verified 10/27/16 11:40 metformin Allergy Diarrhea Verified 10/27/16 11:40 Penicillins Allergy Confusion Verified 10/27/16 11:40 pregabalin [From Lyrica] Allergy Swelling Verified 10/27/16 11:40 of Lip/Tongue/Throat sitagliptin Allergy Muscle Pain Verified 10/27/16 11:40 All systems ED: reviewed and negative except as stated. Review of Systems: As Per HPI Past Medical History - Past Medical History Medical history: Reports: DVT, diabetes, GERD, hypertension Surgical history: Reports: cholecystectomy, hysterectomy Psychiatric history: Reports: no psych history - Social History Smoking Status: Never smoker Smokeless Tobacco Status: No Alcohol use: Reports: none Drug use: Reports: none Physical Exam Vital Signs Reviewed General: Patient is alert, oriented, and in no acute distress. Head: atraumatic, normocephalic Eye: normal appearance, no scleral icterus, no conjunctival injection ENT: mucous membranes moist, normal external ear exam Neck: normal inspection, trachea midline, full ROM Chest: normal inspection, symmetric chest rise Respiratory: Barrel chested. Good respiratory effort. Bilateral breath sounds are clear without wheezing, crackles, or rhonchi. Cardiovascular: Regular rate and rhythm. No clicks, rubs, gallops, or murmors. Normal heart sounds. Bilateral radial posterior tibial pulses 2/4 and equal. Trace bilateral pitting edema. Abdomen: Obese. Bowel sounds present normoactive x-4 quadrants. Abdomen is soft, nondistended, and nontender. No guarding or rebound. Musculoskeletal: Spontaneously moving all extremities. Skin: warm, dry, intact. Neuro: Alert and oriented x4. Sensation light touch intact. Psych: Patient's affect is appropriate for situation. - General Limitations: no limitations General appearance: alert, in no apparent distress Course Course Narrative: EKG dated 14 Jun 2017 at 15:42 interpreted as sinus rhythm with rate of 77. First-degree AV block with AR interval of 251 ms. Otherwise normal intervals. Normal axis. Nonspecific ST-T changes. Compared to previous EKG dated 2017 showing no acute ischemic changes comparison. Vision symptoms are concerning for exertional dyspnea and exertional chest pain. X Serum hematology is unremarkable. Serum chemistries unremarkable; specifically normal troponin and normal BNP. Chest x-ray is unremarkable. EKG shows no acute ischemic changes as above. I discussed the patient with the admitting hospitalist, Dr. Farr, who agrees to accept the patient for continued evaluation and management. Chest X-Ray 06/14/17 15:50 IMPRESSION: 1. No acute cardiopulmonary disease. D/ / Jian Clement MD / Jian Clement MD Interpreting Provider: Jian Clement MD Vital Signs Temperature 97.8 F 06/14/17 15:33 Pulse Rate 82 06/14/17 15:33 Respiratory Rate 18 06/14/17 15:33 Blood Pressure 163/96 06/14/17 15:33 O2 Sat by Pulse Oximetry 94 06/14/17 15:33 Temperature 97.8 F 06/14/17 15:33 Pulse Rate 89 06/14/17 18:04 Respiratory Rate 18 06/14/17 18:49 Blood Pressure 148/89 06/14/17 18:49 O2 Sat by Pulse Oximetry 95 06/14/17 18:04 Oxygen Delivery Oxygen Delivery Room Air Medical Decision Making - Lab Data Result diagrams: 06/14/17 15:57 06/14/17 15:57 Lab Results 06/14/17 06/14/17 06/14/17 Range/Units 15:57 15:57 15:57 WBC 7.0 (4.3-11.1) K/mcL RBC 4.46 (3.82-4.97) M/mcL Hgb 13.9 (11.5-15.4) g/dL Hct 39.9 (35.3-44.9) % MCV 89.5 (83.0-100.0) fL MCH 31.2 (28.0-33.3) pg MCHC 34.8 (31.6-35.5) g/dL RDW 13.0 (11.5-14.5) % Plt Count 123 L (140-400) K/mcL MPV 10.2 (9.4-12.4) fL Immature Gran % 0.3 (0-4) % Seg Neutrophils % 58.9 % Lymphocytes % 29.8 % Monocytes % 9.3 % Eosinophils % 1.4 % Basophils % 0.3 % Neutrophils # 4.1 (1.6-8.9) K/mcL Lymphocytes # 2.1 (0.6-4.6) K/mcL Monocytes # 0.7 (0.0-1.3) K/mcL Eosinophils # 0.1 (0.0-0.6) K/mcL Basophils # 0.0 (0.0-0.2) K/mcL D-Dimer (0-500) ng/mLFEU Sodium 139 (136-145) mEq/L Potassium 3.7 (3.5-5.1) mEq/L Chloride 106 (98-107) mEq/L Carbon Dioxide 24 (23-29) mEq/L BUN 15 (8-23) mg/dL Creatinine 0.62 (0.60-1.20) mg/dL Est GFR ( Amer) > 60 (> 60) Est GFR (Non-Af Amer) > 60 (> 60) BUN/Creatinine Ratio 24 (6-26) Glucose 178 H (70-105) mg/dL Calculated Osmolality 293 (280-300) Calcium 9.2 (8.6-10.3) mg/dL Troponin I < 0.03 (< 0.04) ng/mL B-Natriuretic Peptide 95 (Less than 100) pg/mL 06/14/17 Range/Units 15:57 WBC (4.3-11.1) K/mcL RBC (3.82-4.97) M/mcL Hgb (11.5-15.4) g/dL Hct (35.3-44.9) % MCV (83.0-100.0) fL MCH (28.0-33.3) pg MCHC (31.6-35.5) g/dL RDW (11.5-14.5) % Plt Count (140-400) K/mcL MPV (9.4-12.4) fL Immature Gran % (0-4) % Seg Neutrophils % % Lymphocytes % % Monocytes % % Eosinophils % % Basophils % % Neutrophils # (1.6-8.9) K/mcL Lymphocytes # (0.6-4.6) K/mcL Monocytes # (0.0-1.3) K/mcL Eosinophils # (0.0-0.6) K/mcL Basophils # (0.0-0.2) K/mcL D-Dimer 375 (0-500) ng/mLFEU Sodium (136-145) mEq/L Potassium (3.5-5.1) mEq/L Chloride (98-107) mEq/L Carbon Dioxide (23-29) mEq/L BUN (8-23) mg/dL Creatinine (0.60-1.20) mg/dL Est GFR ( Amer) (> 60) Est GFR (Non-Af Amer) (> 60) BUN/Creatinine Ratio (6-26) Glucose (70-105) mg/dL Calculated Osmolality (280-300) Calcium (8.6-10.3) mg/dL Troponin I (< 0.04) ng/mL B-Natriuretic Peptide (Less than 100) pg/mL Attestation Statement - Attestation Attestation: I, Elijah De Los Santos DO, examined this patient [id number] and my medical decision-making was reviewed with Dr. Adin Mclean, Resident Physician. I agree with the documented findings, disposition and treatment plan as described except to the extent set forth below. Please see my progress notes for details.
[2017-06-14 16:08] LABS: Basophils % 0.3 %; Eosinophils # 0.1 K/mcL (0.0-0.6); Eosinophils % 1.4 %; Hematocrit 39.9 % (35.3-44.9); Hemoglobin 13.9 g/dL (11.5-15.4); Immature Granulocytes % 0.3 % (0-4); Lymphocytes # 2.1 K/mcL (0.6-4.6); Lymphocytes % 29.8 %; Mean Corpuscular HGB Conc 34.8 g/dL (31.6-35.5); Mean Corpuscular Hemoglobin 31.2 pg (28.0-33.3); Mean Corpuscular Volume 89.5 fL (83.0-100.0); Mean Platelet Volume 10.2 fL (9.4-12.4); Monocytes # 0.7 K/mcL (0.0-1.3); Monocytes % 9.3 %; Neutrophils # 4.1 K/mcL (1.6-8.9); Platelet Count 123 K/mcL (140-400); Red Blood Count 4.46 M/mcL (3.82-4.97); Segmented Neutrophils % 58.9 %
[2017-06-14 16:30] LABS: BUN/Creatinine Ratio 24 (6-26); Blood Urea Nitrogen 15 mg/dL (8-23); Calcium 9.2 mg/dL (8.6-10.3); Carbon Dioxide 24 mEq/L (23-29); Chloride 106 mEq/L (98-107); Glucose 178 mg/dL (70-105); Osmolality,Calculated 293 (280-300); Potassium 3.7 mEq/L (3.5-5.1); Sodium 139 mEq/L (136-145); eGFR For African Americans > 60 (> 60); eGFR For Non-African Americans > 60 (> 60)
[2017-06-14 16:31] LABS: Troponin I < 0.03 ng/mL (< 0.04)
[2017-06-14] MEDS ORDERED: Furosemide 40 MG/4 ML VIAL IVP ONE (16:47)
--- NOTE | 2017-06-14 17:01 | Emergency Department Note ---
Disposition Clinical Impression: Shortness of breath, Exertional chest pain Disposition: Admitted As Inpatient Condition: Fair Referrals: Lyn Diamond, [employer] [Primary Care Provider] - Time of Disposition: 17:54 General Adult HPI - General Chief complaint: ED Chest Pain Stated complaint: "sob,cp x 3 days" Time Seen by Provider: 06/14/17 15:30 Source: patient, family Limitations: no limitations - History of Present Illness Pain Scale: 7 - Related Data Home Medications Medication Instructions Recorded Confirmed Insulin Glargine [Lantus] 20 unit SQ QAM 07/27/15 02/13/17 Potassium Chloride [K-Tab ER] 10 meq PO BID 07/27/15 02/13/17 Vitamin E 1,000 units PO DAILY 07/27/15 02/13/17 amLODIPine [Norvasc] 5 mg PO DAILY 07/27/15 02/13/17 glipiZIDE [Glipizide] 10 mg PO BID 07/27/15 02/13/17 ALPRAZolam [Xanax 0.5 MG Tablet] 0.5 mg PO DAILY PRN 10/17/16 02/13/17 Fish Oil/Dha/Epa [Fish Oil 1,200 1,200 mg PO DAILY 10/17/16 02/13/17 mg Fish Oil] Pioglitazone [Actos] 45 mg PO DAILY 10/17/16 02/13/17 Pramipexole [Mirapex] 1 mg PO HS 10/17/16 02/13/17 Triamterene/Hydrochlorothiazid 1 cap PO DAILY 10/17/16 02/13/17 [Dyazide 37.5-25 Capsule] HYDROcodone/Acet 5/325 mg [[place] 1 tab PO BID PRN 02/13/17 02/13/17 5-325 mg] Previous Rx's Medication Instructions Recorded Docusate [Colace] 100 mg PO BID 10/18/16 Ibuprofen [Motrin] 600 mg PO Q6HR PRN tab 10/18/16 Aspirin Enteric Coated [Aspirin EC] 81 mg PO DAILY #30 tablet. 02/14/17 Atorvastatin [Lipitor] 20 mg PO HS #60 tablet 02/14/17 Allergies Allergy/AdvReac Type Severity Reaction Status Date / Time amitriptyline Allergy Diarrhea Verified 10/27/16 11:40 Amoxicillin [From Amoxil] Allergy Rash Verified 10/27/16 11:40 cephalexin Allergy Confusion Verified 10/27/16 11:40 gabapentin Allergy Hallucinati Verified 10/27/16 11:40 ng Influenza Virus Vaccines Allergy Vomiting Verified 10/27/16 11:40 liraglutide [From Victoza] Allergy Nausea Verified 10/27/16 11:40 metformin Allergy Diarrhea Verified 10/27/16 11:40 Penicillins Allergy Confusion Verified 10/27/16 11:40 pregabalin [From Lyrica] Allergy Swelling Verified 10/27/16 11:40 of Lip/Tongue/Throat sitagliptin Allergy Muscle Pain Verified 10/27/16 11:40 Past Medical History - Past Medical History Medical history: Reports: DVT, diabetes, GERD, hypertension Surgical history: Reports: cholecystectomy, hysterectomy Psychiatric history: Reports: no psych history - Social History Smoking Status: Never smoker Smokeless Tobacco Status: No Alcohol use: Reports: none Drug use: Reports: none Physical Exam - General Limitations: no limitations General appearance: alert, in no apparent distress Course Vital Signs Temperature 97.8 F 06/14/17 15:33 Pulse Rate 82 06/14/17 15:33 Respiratory Rate 18 06/14/17 15:33 Blood Pressure 163/96 06/14/17 15:33 O2 Sat by Pulse Oximetry 94 06/14/17 15:33 Temperature 97.8 F 06/14/17 15:33 Pulse Rate 82 06/14/17 15:33 Respiratory Rate 18 06/14/17 15:33 Blood Pressure 163/96 06/14/17 15:33 O2 Sat by Pulse Oximetry 94 06/14/17 15:33 Oxygen Delivery Oxygen Delivery Room Air Medical Decision Making - Lab Data Result diagrams: 06/14/17 15:57 06/14/17 15:57 Lab Results 06/14/17 06/14/17 06/14/17 Range/Units 15:57 15:57 15:57 WBC 7.0 (4.3-11.1) K/mcL RBC 4.46 (3.82-4.97) M/mcL Hgb 13.9 (11.5-15.4) g/dL Hct 39.9 (35.3-44.9) % MCV 89.5 (83.0-100.0) fL MCH 31.2 (28.0-33.3) pg MCHC 34.8 (31.6-35.5) g/dL RDW 13.0 (11.5-14.5) % Plt Count 123 L (140-400) K/mcL MPV 10.2 (9.4-12.4) fL Immature Gran % 0.3 (0-4) % Seg Neutrophils % 58.9 % Lymphocytes % 29.8 % Monocytes % 9.3 % Eosinophils % 1.4 % Basophils % 0.3 % Neutrophils # 4.1 (1.6-8.9) K/mcL Lymphocytes # 2.1 (0.6-4.6) K/mcL Monocytes # 0.7 (0.0-1.3) K/mcL Eosinophils # 0.1 (0.0-0.6) K/mcL Basophils # 0.0 (0.0-0.2) K/mcL D-Dimer (0-500) ng/mLFEU Sodium 139 (136-145) mEq/L Potassium 3.7 (3.5-5.1) mEq/L Chloride 106 (98-107) mEq/L Carbon Dioxide 24 (23-29) mEq/L BUN 15 (8-23) mg/dL Creatinine 0.62 (0.60-1.20) mg/dL Est GFR ( Amer) > 60 (> 60) Est GFR (Non-Af Amer) > 60 (> 60) BUN/Creatinine Ratio 24 (6-26) Glucose 178 H (70-105) mg/dL Calculated Osmolality 293 (280-300) Calcium 9.2 (8.6-10.3) mg/dL Troponin I < 0.03 (< 0.04) ng/mL B-Natriuretic Peptide 95 (Less than 100) pg/mL 06/14/17 Range/Units 15:57 WBC (4.3-11.1) K/mcL RBC (3.82-4.97) M/mcL Hgb (11.5-15.4) g/dL Hct (35.3-44.9) % MCV (83.0-100.0) fL MCH (28.0-33.3) pg MCHC (31.6-35.5) g/dL RDW (11.5-14.5) % Plt Count (140-400) K/mcL MPV (9.4-12.4) fL Immature Gran % (0-4) % Seg Neutrophils % % Lymphocytes % % Monocytes % % Eosinophils % % Basophils % % Neutrophils # (1.6-8.9) K/mcL Lymphocytes # (0.6-4.6) K/mcL Monocytes # (0.0-1.3) K/mcL Eosinophils # (0.0-0.6) K/mcL Basophils # (0.0-0.2) K/mcL D-Dimer 375 (0-500) ng/mLFEU Sodium (136-145) mEq/L Potassium (3.5-5.1) mEq/L Chloride (98-107) mEq/L Carbon Dioxide (23-29) mEq/L BUN (8-23) mg/dL Creatinine (0.60-1.20) mg/dL Est GFR ( Amer) (> 60) Est GFR (Non-Af Amer) (> 60) BUN/Creatinine Ratio (6-26) Glucose (70-105) mg/dL Calculated Osmolality (280-300) Calcium (8.6-10.3) mg/dL Troponin I (< 0.04) ng/mL B-Natriuretic Peptide (Less than 100) pg/mL Attestation Statement - Attestation Attestation: I, Elijah De Los Santos DO, examined this patient [id number] and my medical decision-making was reviewed with Dr. Adin Mclean, Resident Physician. I agree with the documented findings, disposition and treatment plan as described except to the extent set forth below. Please see my progress notes for details. 72-year-old female presents to the emergency room with progressively worsening shortness of breath as well as angina while exerting. Patient does not have any specific cardiac history. Patient denies any fevers or chills nausea vomiting or diarrhea. Denies any headache vision changes at this point. Patient does describe exertional dyspnea as wall as intermittent chest tightness and pain wall she exerts herself. She is currently asymptomatic. Vital signs are reviewed and are unremarkable this time. Head is atraumatic pupils are equal round reactive oropharynx is patent trachea is midline. Patient's lungs are clear to auscultation bilaterally heart is regular. Abdomen is soft. Patient does have pitting edema to the superior aspect of the knee bilaterally with good pulses are intact in the DP and PT distributions bilaterally and they are symmetrical. Patient has no neurologic deficits. Cranial nerves II through XII are grossly intact. Patient will cardiac evaluation including CBC chemistry troponin and BNP chest x-ray and EKG collected here in the emergency room. D-dimer will be added on despite the fact that she does not have any acute shortness of breath with the patient will most likely need admission and her current well's score is 0 and this would effectively rule out pulmonary emboli. Patient has no asymmetry to the lower extremities at this time. Disposition will most be admission the hospital for further management. See detailed documentation of physical exam, medical intervention, medical decision-making and disposition in the resident physician' s note. No critical care provider the patient's treatment course at this time to 1745 Patient is otherwise currently stable at this time. Patient will be admitted for further evaluation and management secondary to the anginal-like presentation with exertional shortness of breath and chest pain is been coming on worse over the last several days. Hospitalist was contacted. No other recommendations this time. Full dose aspirin was given here in the emergency room. Patient is otherwise asymptomatic.
[2017-06-14] MEDS ORDERED: Aspirin 81 MG TAB.CHEW PO STA (17:39)
--- NOTE | 2017-06-14 18:10 | Internal Med History&Physical ---
Date of Encounter: 06/14/17 Time of Encounter: 18:06 Internal Medicine - H&P: HPI Chief complaint: chest pain and sob Admitted From: Emergency Dept Plans for Post Hospital Care: Home History of present illness: Ms. Lewis is a 72 year old female Patient with history of TIA, diabetes, obesity, hypertension, PVD GERD and high cholesterol. Patient presented emergency room with symptoms of 3 days of exertional shortness of breath some chest heaviness sometime goes to her neck associated with some shortness of breath recurrent for about 3 days emergency room evaluation EKG troponin so far is negative she be admitted for further evaluation. Past Med Surg Social Fam HX - Past Medical History Medical history: DVT, diabetes, GERD, hypertension Psychiatric history: no psych history - Past Surgical History Surgical History: cholecystectomy, hysterectomy - Social History Smoking Status: Never smoker Smokeless Tobacco Status: No Alcohol use: none Drug use: none Internal Medicine - H&P: Meds Insulin Glargine [Lantus] 20 unit SQ QAM 07/27/15 [History] Potassium Chloride [K-Tab ER] 10 meq PO BID 07/27/15 [History] Vitamin E 1,000 units PO DAILY 07/27/15 [History] amLODIPine [Norvasc] 5 mg PO DAILY 07/27/15 [History] glipiZIDE [Glipizide] 10 mg PO BID 07/27/15 [History] ALPRAZolam [Xanax 0.5 MG Tablet] 0.5 mg PO DAILY PRN 10/17/16 [History] Fish Oil/Dha/Epa [Fish Oil 1,200 mg Fish Oil] 1,200 mg PO DAILY 10/17/16 [ History] Pramipexole [Mirapex] 1 mg PO HS 10/17/16 [History] Triamterene/Hydrochlorothiazid [Dyazide 37.5-25 Capsule] 1 cap PO DAILY [History] Ibuprofen [Motrin] 600 mg PO Q6HR PRN tab 10/18/16 [Rx] Aspirin Enteric Coated [Aspirin EC] 81 mg PO DAILY #30 tablet. 02/14/17 [Rx] Multivit-Min/FA/Lycopen/Lutein [A Thru Z Select Multivit Tab] 1 tab PO DAILY 04/29 [History] Omeprazole 20 mg PO DAILY 06/14/17 [History] 3 Allergy/AdvReac Type Severity Reaction Status Date / Time amitriptyline Allergy Diarrhea Verified 10/27/16 11:40 Amoxicillin [From Amoxil] Allergy Rash Verified 10/27/16 11:40 cephalexin Allergy Confusion Verified 10/27/16 11:40 gabapentin Allergy Hallucinati Verified 10/27/16 11:40 ng Influenza Virus Vaccines Allergy Vomiting Verified 10/27/16 11:40 liraglutide [From Victoza] Allergy Nausea Verified 10/27/16 11:40 metformin Allergy Diarrhea Verified 10/27/16 11:40 Penicillins Allergy Confusion Verified 10/27/16 11:40 pregabalin [From Lyrica] Allergy Swelling Verified 10/27/16 11:40 of Lip/Tongue/Throat sitagliptin Allergy Muscle Pain Verified 10/27/16 11:40 All Systems PM: A 10-system review of systems was performed and is negative for pertinent findings except as documented above in the HPI. - Constitutional Vitals: Temp Pulse Resp BP Pulse Ox 97.8 F 89 16 155/98 95 06/14/17 15:33 06/14/17 18:04 06/14/17 18:04 06/14/17 18:04 06/14/17 18:04 - Head Head exam: Present: atraumatic, normocephalic - Eye Eye exam: Present: PERRL, conjuntiva pink, sclera anicteric Pupils: Present: PERRL - Neck Neck exam general surgery: Present: supple, trachea midline. Absent: lymphadenopathy - Respiratory Respiratory exam: Present: CTAB. Absent: accessory muscle use, rales, rhonchi, wheezes - Cardiovascular Cardiovascular exam: Present: RRR, +S1, +S2. Absent: diastolic murmur, gallop, rubs, systolic murmur - GI/Abdominal GI/Abdominal exam: Present: normal bowel sounds, soft, no peritoneal signs. Absent: distended, tenderness - Extremities Exam Extremities exam: Present: warm, radial pulses palpable and symmetrical. Absent : calf tenderness, cyanotic, pedal edema - Neurological Exam Neurological exam: Present: CN II-XII intact, oriented X3, no focal deficits. Absent: pronater drift, facial droop, speech deficit - Skin Skin exam: Present: dry, intact Internal Med - H&P Results - Labs CBC & Chem 7: 06/14/17 15:57 06/14/17 15:57 - Assessment and plan (1) Obesity Current Visit: Yes Status: Chronic Qualifiers: Obesity type: due to excess calories Obesity classification: unspecified obesity classification Serious obesity comorbidity presence: unspecified whether serious comorbidity present Qualified Code(s): E66.09 - Other obesity due to excess calories (2) PVD (peripheral vascular disease) Current Visit: Yes Status: Chronic Assessment and plan: No claudication (3) Diabetes Current Visit: No Status: Chronic Assessment and plan: Chronic resume home medication and place on sliding scale Qualifiers: Diabetes mellitus type: type 2 Diabetes mellitus longterm insulin use: unspecified longterm insulin use status Diabetes mellitus complication status : with unspecified complications Qualified Code(s): E11.8 - Type 2 diabetes mellitus with unspecified complications (4) Obesity Current Visit: No Status: Acute Qualifiers: Obesity type: unspecified obesity type Obesity classification: adult class 2 (BMI 35 - 39.9) Serious obesity comorbidity presence: without serious comorbidity Body mass index: BMI 37.0-37.9 Qualified Code(s): E66.9 - Obesity, unspecified; Z68.37 - Body mass index (BMI) 37.0-37.9, adult; Z68.37 - Body mass index (BMI) 37.0-37.9, adult (5) Shortness of breath Current Visit: Yes Status: Acute Assessment and plan: Regular likely angina equivalent and 2-D echo done in February which showed normal LV function (6) Exertional chest pain Current Visit: Yes Status: Acute Assessment and plan: Patient with multiple risk factors obesity hypertension diabetes high cholesterol with the typical symptoms of chest pain need Further cardiac evaluation was scheduled for nuclear stress test in a.m. (7) HTN (hypertension) Current Visit: Yes Status: Chronic Assessment and plan: Chronic uncontroled likely contribution to chest pain Qualifiers: Hypertension type: essential hypertension Qualified Code(s): I10 - Essential (primary) hypertension - Time Spent With Patient Total time spent is greater than 50% in coordination of care (as documented) at patient's floor/unit and/or counseling patient:
[2017-06-14] MEDS ORDERED: Naloxone 0.4 MG/ML INJ IVP PRN (18:14)
[2017-06-14] MEDS ORDERED: ALPRAZolam 0.5 MG TABLET PO PRN (18:17)
[2017-06-14] MEDS ORDERED: Ibuprofen 600 MG TABLET PO PRN (18:17)
[2017-06-14] MEDS ORDERED: Dextrose Gel 15 GM/37.5 ML TUBE PO PRN ×2 (18:19)
[2017-06-14] MEDS ORDERED: *HR* Dextrose 50 % in Water (Syg) 50 ML SYRINGE IVP PRN (18:19)
[2017-06-14] MEDS ORDERED: D5% in Water 1,000 ML IVC PRN (18:19)
[2017-06-14] MEDS: 0.9 % Sodium Chloride 1,000 ML IVC SCH (20:20)
[2017-06-14] MEDS: *HR* GlipiZIDE 5 MG TABLET PO SCH (20:24)
[2017-06-14] MEDS: Insulin LISPRO 300 UNITS/3 ML VIAL SQ SCH (20:24)
[2017-06-15] MEDS: traMADol 50 MG TABLET PO PRN (00:12)
[2017-06-15 01:33] LABS: Basophils % 0.4 %; Eosinophils # 0.1 K/mcL (0.0-0.6); Eosinophils % 1.3 %; Hematocrit 39.7 % (35.3-44.9); Hemoglobin 13.5 g/dL (11.5-15.4); Immature Granulocytes % 0.2 % (0-4); Lymphocytes # 2.6 K/mcL (0.6-4.6); Lymphocytes % 31.5 %; Mean Corpuscular Hemoglobin 30.8 pg (28.0-33.3); Mean Corpuscular Volume 90.6 fL (83.0-100.0); Mean Platelet Volume 10.4 fL (9.4-12.4); Monocytes # 0.8 K/mcL (0.0-1.3); Monocytes % 9.6 %; Neutrophils # 4.7 K/mcL (1.6-8.9); Platelet Count 127 K/mcL (140-400); Red Blood Count 4.38 M/mcL (3.82-4.97)
[2017-06-15 01:49] LABS: Alanine Aminotransferase 26 Units/L (7-52); Albumin/Globulin Ratio 1.9 (1.1-2.2); Alkaline Phosphatase 90 Units/L (34-104); Aspartate Amino Transferase 29 Units/L (13-39); BUN/Creatinine Ratio 26 (6-26); Bilirubin,Total 0.5 mg/dL (0.3-1.0); Blood Urea Nitrogen 16 mg/dL (8-23); Calcium 9.4 mg/dL (8.6-10.3); Carbon Dioxide 29 mEq/L (23-29); Chloride 104 mEq/L (98-107); Chol/HDL Ratio 3.2 (0-4.9); Cholesterol 188 mg/dL (< 200); Globulin 2.1 g/dL (2.4-3.5); Glucose 186 mg/dL (70-105); HDL Cholesterol 58 mg/dL (40-59); LDL Cholesterol,Calculated 67 mg/dL (0-99); Magnesium 1.9 mg/dL (1.6-2.6); Osmolality,Calculated 298 (280-300); Potassium 3.2 mEq/L (3.5-5.1); Sodium 141 mEq/L (136-145); Total Protein 6.1 g/dL (6.4-8.9); Triglycerides 315 mg/dL (< 150); eGFR For African Americans > 60 (> 60); eGFR For Non-African Americans > 60 (> 60)
[2017-06-15] MEDS ORDERED: Regadenoson 0.4 MG/5 ML SYRINGE IVP ONE (06:31)
[2017-06-15] MEDS: Insulin LISPRO 300 UNITS/3 ML VIAL SQ SCH ×4 (08:06→21:33)
[2017-06-15] MEDS: amLODIPine 5 MG TABLET PO SCH (09:38)
[2017-06-15] MEDS: Aspirin Enteric Coated 81 MG Tablet PO SCH (09:39)
[2017-06-15] MEDS: *HR* GlipiZIDE 5 MG TABLET PO SCH (09:39)
[2017-06-15] MEDS: Multivit/Ca/Min/Fe/FA 1 TAB TABLET PO SCH (09:39)
[2017-06-15] MEDS: Acetaminophen 325 MG TABLET PO PRN (09:43)
[2017-06-15] MEDS: Insulin DETEMIR 100 UNIT/ML X5UNITS SQ SCH (09:43)
[2017-06-15] MEDS: 0.9 % Sodium Chloride 1,000 ML IVC SCH (11:03)
--- NOTE | 2017-06-15 13:49 | Electrocardiograph Report ---
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
--- NOTE | 2017-06-15 16:29 | Internal Med Progress Note ---
Date of Encounter: 06/15/17 Time of Encounter: 16:27 - Assessment and plan (1) Exertional chest pain Current Visit: Yes Status: Acute Assessment and plan: presented with chest pain that is worse with exertion for 3 days prior to arrival; multiple risk factors obesity, hypertension, diabetes, high cholesterol. Serial troponin negative, EKG without acute ST changes. Stress test pending. Continue ASA. (2) HTN (hypertension) Current Visit: Yes Status: Chronic Assessment and plan: per hx. BP variable but acceptable. Continue home BP medication. 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 Patient is new to me, information obtained chart review and patient report. Patient says she feels better all my exam, she denies chest pain or shortness of breath at this time but says symptoms usually do not occur until she is up moving around. - Constitutional Vitals: Temp Pulse Resp BP Pulse Ox 98.2 F 67 14 131/74 91 06/15/17 14:49 06/15/17 14:49 06/15/17 14:49 06/15/17 14:49 06/15/17 14:49 General appearance: Present: A&O X 3, morbidly obese, no acute distress - Head Head exam: Present: atraumatic, normocephalic - Eye Eye exam: Present: PERRL, conjuntiva pink, sclera anicteric Pupils: Present: PERRL - Neck Neck exam general surgery: Present: supple, trachea midline. Absent: lymphadenopathy - Respiratory Respiratory exam: Present: CTAB. Absent: accessory muscle use, rales, rhonchi, wheezes - Cardiovascular Cardiovascular exam: Present: RRR, +S1, +S2. Absent: diastolic murmur, gallop, rubs, systolic murmur - GI/Abdominal GI/Abdominal exam: Present: normal bowel sounds, soft, no peritoneal signs. Absent: distended, tenderness - Extremities Exam Extremities exam: Present: warm, radial pulses palpable and symmetrical. Absent : calf tenderness, cyanotic, pedal edema - Neurological Exam Neurological exam: Present: CN II-XII intact, oriented X3, no focal deficits. Absent: pronater drift, facial droop, speech deficit - Skin Skin exam: Present: dry, intact Internal Medicine: Result - Labs CBC & Chem 7: 06/15/17 00:37 06/15/17 00:37 Labs: Short CBC 06/15/17 Range/Units 00:37 WBC 8.2 (4.3-11.1) K/mcL Hgb 13.5 (11.5-15.4) g/dL Hct 39.7 (35.3-44.9) % Plt Count 127 L (140-400) K/mcL Neutrophils # 4.7 (1.6-8.9) K/mcL BMP 06/15/17 00:37 Sodium 141 Potassium 3.2 L Chloride 104 Carbon Dioxide 29 BUN 16 Creatinine 0.62 Glucose 186 H Calcium 9.4 Cardiac Enzymes 06/14/17 06/15/17 06/15/17 Range/Units 21:42 00:37 06:16 Troponin I < 0.03 < 0.03 < 0.03 (< 0.04) ng/mL Liver Function 06/15/17 Range/Units 00:37 Total Bilirubin 0.5 (0.3-1.0) mg/dL AST 29 (13-39) Units/L ALT 26 (7-52) Units/L Alkaline Phosphatase 90 (34-104) Units/L Albumin 4.0 (3.5-5.7) g/dL - ABG Interpretation ABG results: PT/INR, D-dimer D-Dimer 375 ng/mLFEU (0-500) 06/14/17 15:57 - VTE Documentation of Mechanical Device: Intermittent pneumatic compression device Consult Discharge Plan - Plan
[2017-06-16] MEDS: Acetaminophen 325 MG TABLET PO PRN ×2 (00:46→18:28)
[2017-06-16 07:11] LABS: Hematocrit 39.7 % (35.3-44.9); Hemoglobin 13.3 g/dL (11.5-15.4); Mean Corpuscular HGB Conc 33.5 g/dL (31.6-35.5); Mean Corpuscular Hemoglobin 30.6 pg (28.0-33.3); Mean Corpuscular Volume 91.5 fL (83.0-100.0); Mean Platelet Volume 10.3 fL (9.4-12.4); Platelet Count 123 K/mcL (140-400); Red Blood Count 4.34 M/mcL (3.82-4.97); Red Cell Distribution Width 13.2 % (11.5-14.5)
[2017-06-16] MEDS ORDERED: Perflutren Lipid Microsphere 1.3 ML in 0.9 % Sodium Chloride 8.7 ML IVP ONE (07:18)
[2017-06-16 07:28] LABS: BUN/Creatinine Ratio 21 (6-26); Blood Urea Nitrogen 13 mg/dL (8-23); Calcium 9.1 mg/dL (8.6-10.3); Carbon Dioxide 28 mEq/L (23-29); Chloride 106 mEq/L (98-107); Chol/HDL Ratio 3.5 (0-4.9); Cholesterol 183 mg/dL (< 200); Glucose 157 mg/dL (70-105); HDL Cholesterol 53 mg/dL (40-59); LDL Cholesterol,Calculated 84 mg/dL (0-99); Osmolality,Calculated 295 (280-300); Potassium 3.5 mEq/L (3.5-5.1); Sodium 141 mEq/L (136-145); Triglycerides 231 mg/dL (< 150); eGFR For African Americans > 60 (> 60); eGFR For Non-African Americans > 60 (> 60)
[2017-06-16] MEDS: Insulin LISPRO 300 UNITS/3 ML VIAL SQ SCH ×4 (09:56→20:59)
[2017-06-16 10:28] LABS: Estimated Average Glucose 214 mg/dl; Hemoglobin A1C 9.1 %
[2017-06-16] MEDS: amLODIPine 5 MG TABLET PO SCH (10:45)
[2017-06-16] MEDS: Aspirin Enteric Coated 81 MG Tablet PO SCH (10:45)
[2017-06-16] MEDS: Multivit/Ca/Min/Fe/FA 1 TAB TABLET PO SCH (10:45)
[2017-06-16] MEDS: Insulin DETEMIR 100 UNIT/ML X5UNITS SQ SCH (10:54)
--- NOTE | 2017-06-16 16:59 | Internal Med Progress Note ---
Date of Encounter: 06/16/17 Time of Encounter: 16:56 - Assessment and plan (1) Exertional chest pain Current Visit: Yes Status: Acute Assessment and plan: presented with chest pain that is worse with exertion for 3 days prior to arrival; multiple risk factors obesity, hypertension, diabetes, high cholesterol. Serial troponin negative, EKG without acute ST changes. TTE with EF 60%, moderate diastolic dysfunction and no wall motion abnormalities of the roblero visualized. 06/16/17 stress test negative for ischemia or infarct. With history of DVT as noted below. Chest CTA pending to rule out pulmonary embolism. (2) HTN (hypertension) Current Visit: Yes Status: Chronic Assessment and plan: per hx. BP variable but acceptable. Continue home BP medication. Monitor BP and titrate PRN Qualifiers: Hypertension type: essential hypertension Qualified Code(s): I10 - Essential (primary) hypertension (3) PVD (peripheral vascular disease) Current Visit: Yes Status: Chronic Assessment and plan: per hx. (4) Diabetes Current Visit: No Status: Chronic Assessment and plan: per hx. blood sugars controlled. Continue long-acting, SSI. Monitor blood sugar and titrate PRN Qualifiers: Diabetes mellitus type: type 2 Diabetes mellitus fourth mate insulin use: unspecified jail insulin use status Diabetes mellitus complication status : with unspecified complications Qualified Code(s): E11.8 - Type 2 diabetes mellitus with unspecified complications (5) DVT (deep venous thrombosis) Current Visit: Yes Status: Acute Assessment and plan: hx acute DVT to left lower ext 10/2016. Appears to be provoked as it occurred postoperatively. Treated with Eliquis at that time. Now with increased swelling to right lower extremity. Central possible pulmonary embolism with history of DVT as she was symptomatic with shortness of breath and chest pain. Chest CTA and Bilateral lower extreme Dopplers pending. Give one-time dose Lovenox Qualifiers: DVT location: lower extremity Affected thrombotic vein of extremity: popliteal Chronicity: chronic Laterality: left Qualified Code(s): I82.532 - Chronic embolism and thrombosis of left popliteal vein (6) DVT prophylaxis Current Visit: No Status: Acute Assessment and plan: SCD - Time Spent With Patient Total time spent is greater than 50% in coordination of care (as documented) at patient's floor/unit and/or counseling patient: - Subjective Interval history: Seen and cemented at bedside; denies chest pain or shortness of breath but complains of right lower extremity swelling. Says she was diagnosed with the DVT approx 6 months ago. She is agreeable to stay for bilateral lower extreme Dopplers and chest CTA. - Constitutional Vitals: Temp Pulse Resp BP Pulse Ox 98.3 F 84 17 119/79 93 06/16/17 15:30 06/16/17 15:30 06/16/17 15:30 06/16/17 15:30 06/16/17 15:30 General appearance: Present: A&O X 3, morbidly obese, no acute distress - Head Head exam: Present: atraumatic, normocephalic - Eye Eye exam: Present: PERRL, conjuntiva pink, sclera anicteric Pupils: Present: PERRL - Neck Neck exam general surgery: Present: supple, trachea midline. Absent: lymphadenopathy - Respiratory Respiratory exam: Present: CTAB. Absent: accessory muscle use, rales, rhonchi, wheezes - Cardiovascular Cardiovascular exam: Present: RRR, +S1, +S2. Absent: diastolic murmur, gallop, rubs, systolic murmur - GI/Abdominal GI/Abdominal exam: Present: normal bowel sounds, soft, no peritoneal signs. Absent: distended, tenderness - Extremities Exam Extremities exam: Present: pedal edema, warm, radial pulses palpable and symmetrical. Absent: calf tenderness, cyanotic - Neurological Exam Neurological exam: Present: CN II-XII intact, oriented X3, no focal deficits. Absent: pronater drift, facial droop, speech deficit - Skin Skin exam: Present: dry, intact Internal Medicine: Result - Labs CBC & Chem 7: 06/16/17 06:26 06/16/17 06:26 Labs: Short CBC 06/16/17 Range/Units 06:26 WBC 6.6 (4.3-11.1) K/mcL Hgb 13.3 (11.5-15.4) g/dL Hct 39.7 (35.3-44.9) % Plt Count 123 L (140-400) K/mcL [facility] 06/16/17 06:26 Sodium 141 Potassium 3.5 Chloride 106 Carbon Dioxide 28 BUN 13 Creatinine 0.61 Glucose 157 H Calcium 9.1 - ABG Interpretation ABG results: PT/INR, D-dimer D-Dimer 375 ng/mLFEU (0-500) 06/14/17 15:57 - Impressions Impressions Echocardiogram 06/15/17 16:28 Impressions: LVEF 60%. Moderate left ventricular diastolic dysfunction. Normal right ventricular structure and function. Mild tricuspid regurgitation. No pulmonary hypertension by TR gradient, 27 mmHg. Left Ventricular Wall Motion: Rest Echo Findings The mid inferior lateral and basal inferior lateral roblero were not visualized. All other wall segments showed normal motion. Findings: Study Quality * Technically challenging due to body habitus. ECG Findings * Normal sinus rhythm. Left Ventricle * LVEF 60%. * Moderate left ventricular diastolic dysfunction. * Normal LV chamber size. * LV wall thickness measurements not well obtained. Right Ventricle * Normal right ventricular structure and function. Left Atrium * Mildly dilated left atrium. Right Atrium * Normal right atrial size. Aortic Valve * No aortic regurgitation. * Aortic valve not well visualized. * No aortic stenosis. Mitral Valve * Normal mitral valve structure. * No mitral stenosis. * Mild mitral annular calcification * Trace mitral regurgitation. Tricuspid Valve * Tricuspid valve not well visualized. * Mild tricuspid regurgitation. Pulmonic Valve * Pulmonic valve is not well visualized. * No pulmonic stenosis. * No pulmonic regurgitation. Pulmonary Artery * Pulmonary artery not well visualized. Aorta * Normally sized aortic root. * Ascending aorta not well visualized. Pericardium * There is no pericardial effusion present. Interatrial Septum * No evidence of PFO by color Doppler. IVC * The IVC is not well evaluated. - VTE Documentation of Mechanical Device: Intermittent pneumatic compression device Consult Discharge Plan - Plan Referrals: Lyn Diamond, [facility] [Primary Care Provider] -
[2017-06-16] MEDS: *HR* Enoxaparin 120 MG/0.8 ML SYRINGE SQ SCH (18:25)
[2017-06-16] MEDS: traMADol 50 MG TABLET PO PRN (22:22)
[2017-06-17 05:19] LABS: Hematocrit 38.5 % (35.3-44.9); Hemoglobin 13.1 g/dL (11.5-15.4); Mean Corpuscular Hemoglobin 31.1 pg (28.0-33.3); Mean Corpuscular Volume 91.4 fL (83.0-100.0); Mean Platelet Volume 10.8 fL (9.4-12.4); Platelet Count 119 K/mcL (140-400); Red Blood Count 4.21 M/mcL (3.82-4.97); Red Cell Distribution Width 13.1 % (11.5-14.5)
[2017-06-17 05:31] LABS: BUN/Creatinine Ratio 23 (6-26); Blood Urea Nitrogen 16 mg/dL (8-23); Calcium 9.2 mg/dL (8.6-10.3); Carbon Dioxide 27 mEq/L (23-29); Chloride 104 mEq/L (98-107); Glucose 170 mg/dL (70-105); Osmolality,Calculated 295 (280-300); Potassium 3.4 mEq/L (3.5-5.1); Sodium 140 mEq/L (136-145); eGFR For African Americans > 60 (> 60); eGFR For Non-African Americans > 60 (> 60)
[2017-06-17] MEDS: *HR* Enoxaparin 120 MG/0.8 ML SYRINGE SQ SCH ×2 (05:47→16:31)
[2017-06-17] MEDS: Aspirin Enteric Coated 81 MG Tablet PO SCH (08:26)
[2017-06-17] MEDS: Multivit/Ca/Min/Fe/FA 1 TAB TABLET PO SCH (08:26)
[2017-06-17] MEDS: Insulin DETEMIR 100 UNIT/ML X5UNITS SQ SCH (08:26)
[2017-06-17] MEDS: amLODIPine 5 MG TABLET PO SCH (08:26)
[2017-06-17] MEDS: Insulin LISPRO 300 UNITS/3 ML VIAL SQ SCH ×4 (08:27→20:10)
[2017-06-17] MEDS ORDERED: Isovue-370 500 ML INFUS..BTL IV ONE (08:52)
[2017-06-17] MEDS ORDERED: Potassium Chloride Elixir 20 MEQ/15 ML UDC PO ONE (09:32)
[2017-06-17] MEDS ORDERED: Furosemide 40 MG/4 ML VIAL IVP ONE (11:00)
--- NOTE | 2017-06-17 16:44 | Internal Med Progress Note ---
Date of Encounter: 06/17/17 Time of Encounter: 16:41 - Assessment and plan (1) Exertional chest pain Current Visit: Yes Status: Acute Assessment and plan: presented with chest pain that is worse with exertion for 3 days prior to arrival; multiple risk factors obesity, hypertension, diabetes, high cholesterol. Serial troponin negative, EKG without acute ST changes. TTE with EF 60%, moderate diastolic dysfunction and no wall motion abnormalities of the roblero visualized. 06/16/17 stress test negative for ischemia or infarct. Chest CTA negative for pulmonary embolism. Chest pain now resolved. (2) HTN (hypertension) Current Visit: Yes Status: Chronic Assessment and plan: per hx. BP variable but acceptable. Continue home BP medication. Monitor BP and titrate PRN Qualifiers: Hypertension type: essential hypertension Qualified Code(s): I10 - Essential (primary) hypertension (3) PVD (peripheral vascular disease) Current Visit: Yes Status: Chronic Assessment and plan: per hx. (4) Diabetes Current Visit: No Status: Chronic Assessment and plan: per hx. blood sugars controlled. Continue long-acting, SSI. 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 Appears to be provoked as it occurred postoperatively. Treated with Eliquis at that time. Now with increased swelling to right lower extremity; bilateral lower extremity Dopplers negative for DVT. Qualifiers: DVT location: lower extremity Affected thrombotic vein of extremity: popliteal Chronicity: chronic Laterality: left Qualified Code(s): I82.532 - Chronic embolism and thrombosis of left popliteal vein (6) Lower extremity edema Current Visit: Yes Status: Acute Assessment and plan: Bilateral lower extremity edema with trace/1+ pitting edema. Symptoms improved with small rounds of oral Lasix outpatient per patient. Bilateral lower extremity Dopplers negative for DVT as noted above. Stop amlodipine as this could be contributing. Does not appear to be fluid overloaded. Give one-time dose IV Lasix. She may benefit from daily low dose of Lasix. (7) DVT prophylaxis Current Visit: No Status: Acute Assessment and plan: SCD - Time Spent With Patient Total time spent is greater than 50% in coordination of care (as documented) at patient's floor/unit and/or counseling patient: - Subjective Interval history: Seen and cemented at bedside; denies chest pain, no shortness of breath. She does report lower extremity edema which she says her PCP gets her small doses of Lasix with resolution of edema. - Constitutional Vitals: Temp Pulse Resp BP Pulse Ox 98.0 F 79 18 155/76 94 06/17/17 15:45 06/17/17 15:45 06/17/17 15:45 06/17/17 15:45 06/17/17 15:45 General appearance: Present: A&O X 3, morbidly obese, no acute distress - Head Head exam: Present: atraumatic, normocephalic - Eye Eye exam: Present: PERRL, conjuntiva pink, sclera anicteric Pupils: Present: PERRL - Neck Neck exam general surgery: Present: supple, trachea midline. Absent: lymphadenopathy - Respiratory Respiratory exam: Present: CTAB. Absent: accessory muscle use, rales, rhonchi, wheezes - Cardiovascular Cardiovascular exam: Present: RRR, +S1, +S2. Absent: diastolic murmur, gallop, rubs, systolic murmur - GI/Abdominal GI/Abdominal exam: Present: normal bowel sounds, soft, no peritoneal signs. Absent: distended, tenderness - Extremities Exam Extremities exam: Present: pedal edema, warm, radial pulses palpable and symmetrical. Absent: calf tenderness, cyanotic - Neurological Exam Neurological exam: Present: CN II-XII intact, oriented X3, no focal deficits. Absent: pronater drift, facial droop, speech deficit - Skin Skin exam: Present: dry, intact Internal Medicine: Result - Labs CBC & Chem 7: 06/17/17 03:47 06/17/17 03:47 Labs: Short CBC 06/17/17 Range/Units 03:47 WBC 7.0 (4.3-11.1) K/mcL Hgb 13.1 (11.5-15.4) g/dL Hct 38.5 (35.3-44.9) % Plt Count 119 L (140-400) K/mcL BMP 06/17/17 03:47 Sodium 140 Potassium 3.4 L Chloride 104 Carbon Dioxide 27 BUN 16 Creatinine 0.69 Glucose 170 H Calcium 9.2 - ABG Interpretation ABG results: PT/INR, D-dimer D-Dimer 375 ng/mLFEU (0-500) 06/14/17 15:57 - Impressions Impressions Chest CTA 06/17/17 08:52 IMPRESSION: No evidence of pulmonary embolism or acute pulmonary abnormality. Enlarged right lower pole thyroid nodules. If not previously worked up, dedicated thyroid ultrasound recommended. D/ / Jama Johnson MD / Jama Johnson MD Interpreting Provider: Jama Johnson MD - VTE Documentation of Mechanical Device: Intermittent pneumatic compression device Consult Discharge Plan - Plan Referrals: Lyn Diamond, BRICK BAKER [Primary Care Provider] -
[2017-06-17] MEDS: Acetaminophen 325 MG TABLET PO PRN (20:11)
[2017-06-17] MEDS: traMADol 50 MG TABLET PO PRN (21:36)
[2017-06-18] MEDS: *HR* Enoxaparin 120 MG/0.8 ML SYRINGE SQ SCH (05:47)
[2017-06-18 07:31] VITALS: BP 141/84
[2017-06-18 07:33] LABS: BUN/Creatinine Ratio 29 (6-26); Blood Urea Nitrogen 18 mg/dL (8-23); Calcium 9.4 mg/dL (8.6-10.3); Carbon Dioxide 27 mEq/L (23-29); Chloride 103 mEq/L (98-107); Glucose 160 mg/dL (70-105); Osmolality,Calculated 295 (280-300); Potassium 3.8 mEq/L (3.5-5.1); Sodium 140 mEq/L (136-145); eGFR For African Americans > 60 (> 60); eGFR For Non-African Americans > 60 (> 60)
[2017-06-18] MEDS: Aspirin Enteric Coated 81 MG Tablet PO SCH (07:43)
[2017-06-18] MEDS: Multivit/Ca/Min/Fe/FA 1 TAB TABLET PO SCH (07:43)
[2017-06-18] MEDS: Insulin DETEMIR 100 UNIT/ML X5UNITS SQ SCH (07:44)
[2017-06-18] MEDS: Insulin LISPRO 300 UNITS/3 ML VIAL SQ SCH (07:44)
[2017-06-18 08:25] LABS: Hemoglobin 13.7 g/dL (11.5-15.4); Mean Corpuscular HGB Conc 33.4 g/dL (31.6-35.5); Mean Corpuscular Hemoglobin 30.8 pg (28.0-33.3); Mean Corpuscular Volume 92.1 fL (83.0-100.0); Red Blood Count 4.45 M/mcL (3.82-4.97); Red Cell Distribution Width 13.2 % (11.5-14.5); Thyroid Stimulating Hormone 0.857 mcIU/mL (0.340-5.600)
[2017-06-18 08:26] LABS: Mean Platelet Volume 10.4 fL (9.4-12.4); Platelet Count 128 K/mcL (140-400)
--- NOTE | 2017-06-18 08:58 | Discharge Summary ---
- NOTES TO OUTPATIENT PROVIDER Notes to Outpatient Provider: Recommend repeat CMP within 1 week to assess renal function and potassium level (discharged on lasix). Will need thyroid US Orders not resulted at time of discharge: Pending orders 06/15/17 07:00 NM chele perf SPECT multi [NM] Routine 06/19/17 04:00 BMP [Basic Metabolic Panel] AM 0400 Complete Blood Count w/o Diff [HEME] AM 0400 06/20/17 04:00 BMP [Basic Metabolic Panel] AM 0400 Complete Blood Count w/o Diff [HEME] AM 0400 Date of Encounter: 06/18/17 Time of Encounter: 08:56 - Discharge Diagnosis (1) Exertional chest pain Priority: Primary Status: Acute Assessment and Plan: presented with chest pain that is worse with exertion for 3 days prior to arrival; multiple risk factors obesity, hypertension, diabetes, high cholesterol. Serial troponin negative, EKG without acute ST changes. TTE with EF 60%, moderate diastolic dysfunction and no wall motion abnormalities of the roblero visualized. 06/16/17 stress test negative for ischemia or infarct. Chest CTA negative for pulmonary embolism. Chest pain resolved. (2) HTN (hypertension) Priority: Primary Status: Chronic Assessment and Plan: per hx. BP variable but acceptable. Home amlodipine stopped with lower extremity edema. BP mildly elevated; hold on initiating another antihypertensive or increasing dose of current antihypertensive as she is be discharged home on Lasix which will likely lower BP. Recommend BP recheck with PCP in 1 week Qualifiers: Hypertension type: essential hypertension Qualified Code(s): I10 - Essential (primary) hypertension (3) Lower extremity edema Priority: Primary Status: Acute Assessment and Plan: Bilateral lower extremity edema with trace/1+ pitting edema. Patient reported this is recurrent and swelling improved with small rounds of oral Lasix outpatient per PCP. Bilateral lower extremity Dopplers negative for DVT as noted above. Stop amlodipine as this could be contributing. Does not appear to be fluid overloaded. Swelling improved with 2 doses IV Lasix. Discharge home on oral Lasix with outpatient follow-up with PCP. (4) PVD (peripheral vascular disease) Priority: Secondary Status: Chronic Assessment and Plan: per hx. Cont home ASA, BB (5) Diabetes Priority: Secondary Status: Chronic Assessment and Plan: per hx. blood sugars controlled. Cont home diabetes medication regimen Qualifiers: Diabetes mellitus type: type 2 Diabetes mellitus halfway insulin use: unspecified halfway insulin use status Diabetes mellitus complication status : with unspecified complications Qualified Code(s): E11.8 - Type 2 diabetes mellitus with unspecified complications (6) DVT (deep venous thrombosis) Priority: Secondary Status: Chronic Assessment and Plan: hx acute DVT to left lower ext 10/2016. Appears to be provoked as it occurred postoperatively. Treated with Eliquis at that time. Now with increased swelling to right lower extremity; bilateral lower extremity Dopplers negative for DVT. Qualifiers: DVT location: lower extremity Affected thrombotic vein of extremity: popliteal Chronicity: chronic Laterality: left Qualified Code(s): I82.532 - Chronic embolism and thrombosis of left popliteal vein (7) Thyroid nodule Priority: Primary Status: Acute Assessment and Plan: chest CTA showed enlarged right lower pole thyroid nodules. TSH normal. A dedicated thyroid ultrasound recommended and can be done outpatient. Hospital course: Please see assessment and plan for Hospital course Discharge discussed with: patient (Seen and examined at bedside; still with lower extreme edema but overall improved. Says she feels better would like to go home today. Advised on low sodium diet, compression wraps and keeping legs elevated.) - Time Spent with Patient Total time spent providing and/or coordinating discharge services: - Discharge Medications Prescriptions: Furosemide [Lasix] 20 mg PO DAILY #30 tablet Home Medications: Insulin Glargine [Lantus] 30 unit SQ QAM 07/27/15 [History] Potassium Chloride [K-Tab ER] 10 meq PO BID 07/27/15 [History] Vitamin E 1,000 units PO DAILY 07/27/15 [History] glipiZIDE [Glipizide] 10 mg PO TID 07/27/15 [History] ALPRAZolam [Xanax 0.5 MG Tablet] 0.5 mg PO DAILY PRN 10/17/16 [History] Fish Oil/Dha/Epa [Fish Oil 1,200 mg Fish Oil] 1,200 mg PO DAILY 10/17/16 [ History] Pramipexole [Mirapex] 1 mg PO 2000 10/17/16 [History] Triamterene/Hydrochlorothiazid [Dyazide 37.5-25 Capsule] 1 cap PO DAILY [History] Ibuprofen [Motrin] 600 mg PO Q6HR PRN tab 10/18/16 [Rx] Aspirin Enteric Coated [Aspirin EC] 81 mg PO DAILY #30 tablet. 02/14/17 [Rx] Multivit-Min/FA/Lycopen/Lutein [A Thru Z Select Multivit Tab] 1 tab PO DAILY 04/29 [History] Omeprazole 20 mg PO DAILY 06/14/17 [History] Furosemide [Lasix] 20 mg PO DAILY #30 tablet 06/18/17 [Rx] Allergies/Adverse Reactions: 3 Allergy/AdvReac Type Severity Reaction Status Date / Time amitriptyline Allergy Diarrhea Verified 10/27/16 11:40 Amoxicillin [From Amoxil] Allergy Rash Verified 10/27/16 11:40 cephalexin Allergy Confusion Verified 10/27/16 11:40 gabapentin Allergy Hallucinati Verified 10/27/16 11:40 ng Influenza Virus Vaccines Allergy Vomiting Verified 10/27/16 11:40 liraglutide [From Victoza] Allergy Nausea Verified 10/27/16 11:40 metformin Allergy Diarrhea Verified 10/27/16 11:40 Penicillins Allergy Confusion Verified 10/27/16 11:40 pregabalin [From Lyrica] Allergy Swelling Verified 10/27/16 11:40 of Lip/Tongue/Throat sitagliptin Allergy Muscle Pain Verified 10/27/16 11:40 Date of admission: 06/14/17 18:04 Primary care physician: Lyn Diamond CNP Discharging clinician: Dionna Reyes Anticipated date of discharge: 06/18/17 - Constitutional Vitals: Temp Pulse Resp BP Pulse Ox 97.8 F 60 15 141/84 94 06/18/17 07:27 06/18/17 07:27 06/18/17 07:27 06/18/17 07:27 06/18/17 08:02 General appearance: Present: A&O X 3, morbidly obese, no acute distress - Head Head exam: Present: atraumatic, normocephalic - Eye Eye exam: Present: PERRL, conjuntiva pink, sclera anicteric Pupils: Present: PERRL - Neck Neck exam general surgery: Present: supple, trachea midline. Absent: lymphadenopathy - Respiratory Respiratory exam: Present: CTAB. Absent: accessory muscle use, rales, rhonchi, wheezes - Cardiovascular Cardiovascular exam: Present: RRR, +S1, +S2. Absent: diastolic murmur, gallop, rubs, systolic murmur - GI/Abdominal GI/Abdominal exam: Present: normal bowel sounds, soft, no peritoneal signs. Absent: distended, tenderness - Extremities Exam Extremities exam: Present: pedal edema, warm, radial pulses palpable and symmetrical. Absent: calf tenderness, cyanotic - Neurological Exam Neurological exam: Present: CN II-XII intact, oriented X3, no focal deficits. Absent: pronater drift, facial droop, speech deficit - Skin Skin exam: Present: dry, intact - Patient Status Disposition: Home, Self-Care Condition: Good Functional capacity at discharge: independent ambulation Overall status at discharge: patient is back to baseline - Discharge Instructions Instructions: Furosemide (By mouth), Low Sodium Diet (DC), Seasoning Without Salt (DC), Thyroid Nodules (DC) Follow Up With: Lyn Diamond CNP [Primary Care Provider] - 06/20/17 Forms: ED Satisfaction Letter - Diet and Activity Activity: increase activity as tolerated Diet: diabetic diet, low fat, low cholesterol, low salt diet - VTE Documentation of Mechanical Device: Intermittent pneumatic compression device
[2017-06-18] MEDS ORDERED: Furosemide 40 MG/4 ML VIAL IVP SCH (09:00)
== END 2017-06-18 10:33 | disposition home or self-care (01) ==
LOC: EMEROO 15:26 → 3BNU 15:26
PROVIDERS: ADMIT Internal Medicine Cardiovascular Disease; ATTEND Internal Medicine Cardiovascular Disease